=== PATIENT | female | born 1955 | race Two or more races ===

== ENCOUNTER 2023-10-20 11:57 | Inpatient (IN) | payer OTHER, SELFPAY ==
[2023-10-19] VITALS (14 sets, daily range): BP systolic 104–139; BP diastolic 75–88; BMI 24.1; BMI 28.1
--- NOTE | 2023-10-19 10:55 | ED.GENMED ---
History of Present Illness
<Barbara Gillette BLAST FURNACE KEEPER - Last Filed: 10/19/23 17:32>
General
Chief Complaint: Abdominal Symptoms
Source: patient
Exam Limitations: none
Time Seen by Provider: 10/19/23 10:42
Nursing documentation reviewed up to this point in time: agreed with
Travel History
Have you had any contact with someone who has COVID-19?: No
Do you have any symptoms of coronavirus? Fever > 100 degrees, chills, cough, shortness of breath, sore throat, loss of taste or smell, muscle aches, or headache?: No
History of Present Illness
History of Present Illness:
68-year-old female with history of HTN, NIDDM, kidney stone needing lithotripsy 5 years ago, presents with daughter stating she has had constant pain across her mid abdomen and also her left flank for 1 week. She is nauseous but has not vomited.
She denies diarrhea or constipation. Denies fever or chills. 5 days ago she saw blood in her urine, and now occasional pink urine since. Her last bowel movement was last p.m.
Phy Exam
<Barbara Gillette BLAST FURNACE KEEPER - Last Filed: 10/19/23 17:32>
Physical Exam
Physical Exam:
GENERAL: No acute distress. A&Ox3.
CONSTITUTIONAL: Afebrile.
EYES: PERRL, conjunctivae normal
ENMT: moist mucus membranes, Pharynx nl
RESPIRATORY: Regular respirations, nonlabored, lungs clear.
CARDIOVASCULAR: Regular rate and rhythm, no murmurs, no rubs.
GI: Soft, nontender, normal BS
MUSCULOSKELETAL: Moves with ease. Well perfused.
SKIN: Warm, dry, pink
PSYCH: Normal mood and affect. Well kept, interactive and appropriate
NEUROLOGIC: Awake, alert and oriented. No focal neurological deficits
Course
<Barbara Gillette BLAST FURNACE KEEPER - Last Filed: 10/19/23 17:32>
Orders/Labs/Results
Orders:
Orders
10/19/23 11:04
Ketorolac [Toradol] 15 mg IM NOW STA
Ondansetron Injectable [Zofran] 4 mg IV NOW STA
10/19/23 11:08
0.9% Sodium Chloride 1000 ml [Nss] 1,000 ml IV BOLUS
10/19/23 11:09
CT Abd/pel Without Iv Or Oral Urgent
Comment:
Reason For Exam: Left flank pain hx stones, gen abdominal pain
10/19/23 11:28
Complete Blood Count/With Diff Urgent
Comprehensive Metabolic Panel Urgent
Lipase Urgent
10/19/23 11:37
Ketorolac [Toradol] 15 mg IV NOW STA
10/19/23 11:41
Urinalysis Reflex To Culture Urgent
Date Specimen was Collected: 10/19/23
Time Specimen was Collected: 11:38
Urine Microscopic Reflex Cult Urgent
10/19/23 12:30
Add On- LAB Urgent
Tests Added?: BNP, Troponin
10/19/23 12:31
Electrocardiogram (*1) Urgent
Reason for Study: Chest Pain
EKG- Treatment ONCE
10/19/23 13:07
NT-proBNP Urgent
Troponin I Urgent
10/19/23 14:30
CR Chest - 2 Views Urgent
Comment:
Reason For Exam: SOB, elevated BNP
Abnormal Lab Results
10/19/23 10/19/23
11:28 11:41
Hgb 9.0 L g/dL
(12.0-16.0)
Hct 31.9 L %
(37.0-47.0)
MCV 68.2 L fL
(81.0-99.0)
MCH 19.2 L pg
(27.0-31.0)
MCHC 28.2 L g/dL
(33.0-37.0)
RDW 18.7 H %
(11.5-14.5)
MPV 10.6 H fL
(7.4-10.4)
Absolute Monos (auto) 1.0 H 10^3/uL
(0.1-0.6)
Lymphocytes % 17.1 L %
(20.5-51.1)
Monocytes % 12.2 H %
(1.7-9.3)
Sodium 134 L mmol/L
(135-145)
BUN 18 H mg/dl
(7-17)
Glucose 115 H mg/dl
(70-99)
Total Bilirubin 1.4 H mg/dl
(0.2-1.3)
AST 70 H U/L
(14-36)
ALT 54 H U/L
(0-35)
Total Protein 6.2 L g/dl
(6.3-8.2)
Ur Occult Blood Reflex 3+ A
(Negative)
Leukocyte Esterase Rfl Trace A
(Negative)
Urine RBC 11-15 A /HPF
(0-2)
Urine Bacteria (Reflex) Few A
(Negative)
Urine Glucose 3+ A
(Negative)
10/19/23 11:28
10/19/23 11:28
Vital Signs
Initial and Last Documented VS:
Initial Vital Signs
Temp Pulse Resp BP Pulse Ox
97.7 F 105 18 139/88 100
10/19/23 10:05 10/19/23 10:05 10/19/23 10:05 10/19/23 10:05 10/19/23 10:05
Last Documented Vital Signs
Temp Pulse Resp BP Pulse Ox
97.7 F 105 23 112/75 99
10/19/23 10:05 10/19/23 16:00 10/19/23 16:00 10/19/23 16:00 10/19/23 16:00
Cattle Farmer consulted with Physician
Cattle Farmer consulted with physician?: Yes
Name of Physician Consulted: Renee
<Dexter Duran MD - Last Filed: 10/19/23 17:25>
Orders/Labs/Results
Orders:
Orders
10/19/23 11:04
Ketorolac [Toradol] 15 mg IM NOW STA
Ondansetron Injectable [Zofran] 4 mg IV NOW STA
10/19/23 11:08
0.9% Sodium Chloride 1000 ml [Nss] 1,000 ml IV BOLUS
10/19/23 11:09
CT Abd/pel Without Iv Or Oral Urgent
Comment:
Reason For Exam: Left flank pain hx stones, gen abdominal pain
10/19/23 11:28
Complete Blood Count/With Diff Urgent
Comprehensive Metabolic Panel Urgent
Lipase Urgent
10/19/23 11:37
Ketorolac [Toradol] 15 mg IV NOW STA
10/19/23 11:41
Urinalysis Reflex To Culture Urgent
Date Specimen was Collected: 10/19/23
Time Specimen was Collected: 11:38
Urine Microscopic Reflex Cult Urgent
10/19/23 12:30
Add On- LAB Urgent
Tests Added?: BNP, Troponin
10/19/23 12:31
Electrocardiogram (*1) Urgent
Reason for Study: Chest Pain
EKG- Treatment ONCE
10/19/23 13:07
NT-proBNP Urgent
Troponin I Urgent
10/19/23 14:30
CR Chest - 2 Views Urgent
Comment:
Reason For Exam: SOB, elevated BNP
Abnormal Lab Results
10/19/23 10/19/23
11:28 11:41
Hgb 9.0 L g/dL
(12.0-16.0)
Hct 31.9 L %
(37.0-47.0)
MCV 68.2 L fL
(81.0-99.0)
MCH 19.2 L pg
(27.0-31.0)
MCHC 28.2 L g/dL
(33.0-37.0)
RDW 18.7 H %
(11.5-14.5)
MPV 10.6 H fL
(7.4-10.4)
Absolute Monos (auto) 1.0 H 10^3/uL
(0.1-0.6)
Lymphocytes % 17.1 L %
(20.5-51.1)
Monocytes % 12.2 H %
(1.7-9.3)
Sodium 134 L mmol/L
(135-145)
BUN 18 H mg/dl
(7-17)
Glucose 115 H mg/dl
(70-99)
Total Bilirubin 1.4 H mg/dl
(0.2-1.3)
AST 70 H U/L
(14-36)
ALT 54 H U/L
(0-35)
Total Protein 6.2 L g/dl
(6.3-8.2)
Ur Occult Blood Reflex 3+ A
(Negative)
Leukocyte Esterase Rfl Trace A
(Negative)
Urine RBC 11-15 A /HPF
(0-2)
Urine Bacteria (Reflex) Few A
(Negative)
Urine Glucose 3+ A
(Negative)
10/19/23 11:28
10/19/23 11:28
Vital Signs
Initial and Last Documented VS:
Initial Vital Signs
Temp Pulse Resp BP Pulse Ox
97.7 F 105 18 139/88 100
10/19/23 10:05 10/19/23 10:05 10/19/23 10:05 10/19/23 10:05 10/19/23 10:05
Last Documented Vital Signs
Temp Pulse Resp BP Pulse Ox
97.7 F 105 23 112/75 99
10/19/23 10:05 10/19/23 16:00 10/19/23 16:00 10/19/23 16:00 10/19/23 16:00
<Barbara Gillette BLAST FURNACE KEEPER - Last Filed: 10/19/23 17:32>
MDM/Problems Addressed
Differential Diagnosis Includes:
Kidney stone, ureteral stone, diverticulitis, AAA
MDM/Problems Addressed:
68-year-old female with history of HTN, NIDDM, kidney stone needing lithotripsy 5 years ago, presents with daughter stating she has had constant pain across her mid abdomen and also her left flank for 1 week. She is nauseous but has not vomited.
She denies diarrhea or constipation. Denies fever or chills. 5 days ago she saw blood in her urine, and now occasional pink urine since. Her last bowel movement was last p.m.
Afebrile
10/19/2023 1147 AM\\
CBC: Hemoglobin 9, nothing to compare, indices indicate iron deficiency
CMP:Minimal elevation of AST ALT, no clinically significant abnormality
Lipase normal
UA: 3+ occult blood, negative nitrates
10/19/[address] abdomen pelvis with IV only contrast radiology report read: 1. Horseshoe kidney. Large stones within each renal pelvis, without significant hydronephrosis on either side.
2. Bilateral pleural effusions. Small amount of diffuse intraperitoneal ascites. Small pericardial effusion.
3. Mild wall thickening involving the urinary bladder, without adjacent inflammatory change. Findings may be reflective of cystitis.
4. Severe coronary arterial calcification. Please correlate with symptoms of and risk factors for coronary artery disease, with further workup as clinically appropriate.
5. Right lower lobe lung nodule measuring 5 mm in diameter. As per Fleischner Society recommendations, no further CT follow-up is required unless the patient is high risk for lung carcinoma, in which case a follow-up chest CT should be considered in
approximately 12 months.
10/19/2023 1430 PM
BNP 7750
Troponin within normal limits
Case discussed with Dr. Duran who evaluated patient, agrees with admit with CHF
Hospitalist notified of admission.
Chronic conditions affecting care: DM and HTN
<Barbara Gillette NP - Last Filed: 10/19/23 17:32>
*EKG
EKG Intrepretation Date: 10/19/23
Interpretation: abnormal
Rate: normal
Rhythm: sinus and PAC's
[place]: normal axis
Interval: normal interval
QRS Pattern: normal QRS
Ischemia: non-specific ST changes
*Critical Care Note
Total Time (30-74mins, 75-104mins- exclusive of procedures): Not Applicable
ED Attending Note
<Barbara Gillette NP - Last Filed: 10/19/23 17:32>
-
Portions of this chart may have been created with voice recognition software.� Occasional wrong word or��sound alike� substitutions may have occurred due to the inherent limitations of voice recognition software.
<Dexter Duran MD - Last Filed: 10/19/23 17:25>
ED Attending Note
Patient seen and examined by attending physician: Yes
ED Attending Note:
I have seen and evaluated the patient with a [id number] encounter. I have spoken to the advance practicer provider and involved in the medical history, the physical exam, medical decision making.
Evaluation and management service: agree unless noted differently below.
Results interpretation: agree unless noted differently below.
Focused HPI: 68-year-old female with a history of hypertension and diabetes who presents to the emergency room with her daughter for evaluation of dyspnea and abdominal discomfort. Patient reports that she has had increasing exertional dyspnea for
the past 2 to 3 months. Over the past 2 to 3 weeks in addition to her dyspnea she has noted increasing abdominal bloating and upper abdominal discomfort. She has had some nausea and poor appetite but no vomiting. No diarrhea or constipation. No
fevers or chills. She has not any chest pain.
Physical exam: Awake alert oriented x 3. Tachycardic but otherwise normal vitals. Abdomen mildly distended, mildly tender across the upper abdomen. Breath sounds diminished at the lung bases bilaterally. No focal wheezing or rales appreciated.
No cardiac rubs gallops or murmurs but tachycardia; ostensibly regular rhythm. No significant edema.
Medical Decision Makin-year-old female presents for evaluation of worsening exertional dyspnea and upper abdominal discomfort. Labs sent off and reviewed�[facility] shows microcytic anemia with a hemoglobin of 9�no priors available for comparison.
CMP shows mildly abnormal liver function test. She had a CT of the abdomen pelvis which showed trace bilateral pleural effusions, trace ascites and other incidental findings. Chest x-ray shows some pulmonary edema and cardiomegaly and her BNP is
7700. Suspect likely this is new onset CHF and abdominal discomfort could be related to hepatic congestion. She has just [place] to this country does not have a doctor here�although she is not in distress will admit for continued evaluation and
workup of suspected new onset CHF.
Discharge Plan
Departure
Patient Disposition: Admit
Date of Disposition: 10/19/23
Time of Disposition: 14:29
Presentation/result/management discussed w/ accepting MD/DO: Hospitalist
Condition: Fair
Discharge Problem:
CHF (congestive heart failure)
Prescriptions:
No Action
Atorvastat/Clopidogrel/Aspirin
1 tab PO DAILY
Rx Instructions:
Atorvastatin 20mg, Clopidogrel 75mg, Aspirin 75mg
valsartan-hydrochlorothiazide 160-12.5 mg tablet
1 tab PO DAILY
sitagliptin phos-metformin 50-500 mg Tablet
1 tab PO BID
dapagliflozin propanediol 10 mg Tablet
10 mg PO DAILY
Referrals:
NONE,* [Family Provider] -
Interventions
Interventions:
*Risk Screen - Suicide Last Done: 10/19/23 11:24
*General Assessment Last Done: 10/19/23 11:24
*Neglect/Abuse Screening Last Done: 10/19/23 11:24
ED- Fall Risk Assessment Last Done: 10/19/23 11:43
*ED COVID-19 Vaccine History Last Done: 10/19/23 10:09
KF-Vvihfr-Hjxhmwddtl Assessment Last Done: 10/19/23 11:40
[2023-10-19] MEDS: ZOFRAN 4 MG IV (11:30)
[2023-10-19] MEDS: NSS 1000 IV (11:30)
[2023-10-19 11:36] LABS: % Basophils 0.9 % (0-2); % Eosinophils 1.2 % (0-6); % Immature Granulocytes 0.4 % (0-0.5); % Lymphocytes 17.1 % (20.5-51.1); % Monocytes 12.2 % (1.7-9.3); % Neutrophils 68.2 % (42.2-75.2); Absolute Basophils 0.1 10^3/uL (0-0.2); Absolute Eosinophils 0.1 10^3/uL (0-0.7); Absolute Lymphocytes 1.3 10^3/uL (1.2-3.4); Absolute Neutrophils 5.3 10^3/uL (1.4-6.5); Hematocrit 31.9 % (37.0-47.0); Mean Corp Hgb Conc. 28.2 g/dL (33.0-37.0); Mean Corpuscular Hgb 19.2 pg (27.0-31.0); Mean Corpuscular Volume 68.2 fL (81.0-99.0); Mean Platelet Volume 10.6 fL (7.4-10.4); Nucleated Red Blood Cells % 0.5 %; Platelet Count 373 10^3/uL (130-400); Red Blood Cell Count 4.68 10^6/uL (4.20-5.40); Red Cell Dist. Width 18.7 % (11.5-14.5); White Blood Cell Count 7.8 10^3/uL (4.8-10.8)
[2023-10-19] MEDS: TORADOL 15 MG IV (11:37)
[2023-10-19 11:54] LABS: ALT (SGPT) 54 U/L (0-35); AST (SGOT) 70 U/L (14-36); Albumin 3.8 g/dl (3.5-5.0); Alkaline Phosphatase 71 U/L (38-126); Blood Urea Nitrogen 18 mg/dl (7-17); Calcium 9.3 mg/dl (8.4-10.2); Carbon Dioxide 22 mmol/L (22-30); Chloride 105 mmol/L (98-107); Estimated Creatinine Clearance 42 ml/min; Glucose 115 mg/dl (70-99); Lipase 105 U/L (23-300); Potassium 4.8 mmol/L (3.5-5.1); Sodium 134 mmol/L (135-145); Total Bilirubin 1.4 mg/dl (0.2-1.3); Total Protein 6.2 g/dl (6.3-8.2); eGFR > 60.00
[2023-10-19 11:58] LABS: Urine Albumin Negative (Neg - Trace); Urine Bilirubin Negative (Negative); Urine Character Clear (Clear); Urine Color Straw; Urine Glucose 3+ (Negative); Urine Ketone Negative (Negative); Urine Leukocyte Trace (Negative); Urine Nitrite Negative (Negative); Urine Occult Blood 3+ (Negative); Urine Specific Gravity 1.005 (<1.030); Urine Urobilinogen Negative (Neg - 1+)
[2023-10-19 12:48] LABS: Urine Squamous Cell >30 /LPF (Few)
[2023-10-19 12:50] LABS: Urine Bacteria Few (Negative); Urine White Cell 0-2 /HPF (0-5)
[2023-10-19 13:55] LABS: NT-proBNP 7750 pg/ml; Troponin I 0.015 ng/ml
[2023-10-19 15:41] LABS: Anisocytosis 1+; Microcytosis 2+
[2023-10-19 15:42] LABS: Hypochromasia 1+; Normal RBC Morphology No
--- NOTE | 2023-10-19 20:21 | HPS.HSE ---
Addendum entered and electronically signed by Lucero Saucedo DO 10/19/23 21:37:
The patient is seen and examined. I have reviewed the patient with Stacie, and agree with her history and physical, assessment and plan of care as per below.
The patient is from [place] and speaks very little Yi and family is also in the room giving history and physical. The patient has diffuse abdominal pain similar to pain from prior kidney stones. No vomiting, no diarrhea, no CP, no SOB at this
time.
VSS, AF
Abdomen- no fluid wave, no peritoneal signs, normal BS, diffuse tenderness with some voluntary guarding
CV RRR, no m/r/g
Lungs CTA b/l no w/r/r
Labs and imaged reviewed
CT a/p
1. Horseshoe kidney. Large stones within each renal pelvis, without significant hydronephrosis on either side.
2. Bilateral pleural effusions. Small amount of diffuse intraperitoneal ascites. Small pericardial effusion.
3. Mild wall thickening involving the urinary bladder, without adjacent inflammatory change. Findings may be reflective of cystitis.
4. Severe coronary arterial calcification. Please correlate with symptoms of and risk factors for coronary artery disease, with further workup as clinically appropriate.
5. Right lower lobe lung nodule measuring 5 mm in diameter. As per Fleischner Society recommendations, no further CT follow-up is required unless the patient is high risk for lung carcinoma, in which case a follow-up chest CT should be considered in
approximately 12 months.
#CAD on imaging without known PMH of CAD per family though she is on statin/aspirin/plavix from [place], possible CHF w ascites and congested liver
-Cards Cx
-echo
-tele monitoring
-IV Lasix x 1 in ED and monitor clinical response
-Trop repeat pending
- repeat CMP in am, repeat CBC in am
-lipase WNL
Horseshoe kidney w stones, no hydronephrosis noted
-UA pending
-Urology consultation appreciated
Original Note:
Family Physician
-
Family Physician: * NONE
Chief Complaint
-
Abdominal Discomfort
History of Present Illness
Pt is a 68yo F w/ a PMH of HTN, DM-I, and kidney stones presenting to the ED complaining of increasing abdominal distension and abdominal discomfort. Daughter initially proved additional history however is no longer in the emergency department and
no answer with multiple phone calls. ED documentation indicates in addition to the abdominal discomfort patient has also noted increased dyspnea on exertion. Mention is also made that patient saw blood in her urine several days ago, and has
intermittent pink urine. Other history is limited due to language barrier.
Medical History
Past Medical History
Past Medical History: Reports Other
Additional Past Medical History:
Essential Hypertension
Hyperlipidemia
Diabetes Mellitus
Past Surgical History: Reports Other
Additional Past Surgical History:
Knee Surgery
Lithotripsy
Social History
Unable to obtain full social history at this time due to: Language Barrier
Family History
Family History: Unable to Obtain
Allergies / Home Medications
Allergies reflects when Allergies were last updated in [facility].
Home Medications with original date entered in [facility]
Allergy/Medication List:
Allergies
Allergy/AdvReac Type Severity Reaction Status Date / Time
No Known Allergies Allergy Verified 10/19/23 10:10
Home Medications
Atorvastat/Clopidogrel/Aspirin 1 tab PO DAILY Heart Disease/Blood Clot Prevention 10/19/23
dapagliflozin propanediol 10 mg tablet 10 mg PO DAILY Diabetes 10/19/23
sitagliptin phosphate 50 mg-metformin 500 mg tablet 1 tab PO BID Diabetes 10/19/23
valsartan 160 mg-hydrochlorothiazide 12.5 mg tablet 1 tab PO DAILY Blood Pressure 10/19/23
Review of Systems
-
Unable to obtain full review of systems at this time due to: Language Barrier
Physical Exam
Vital Signs
Vital Signs
Temp Pulse Resp BP Pulse Ox
97.7 F 95 22 118/77 99
10/19/23 10:05 10/19/23 18:15 10/19/23 18:15 10/19/23 18:00 10/19/23 18:15
Physical Exam
General: Comfortable and Conversant
HEENT: NormoCephalic, Anicteric and Moist mucous membranes
Respiratory: Rales (Right Base) and Decreased Breath Sounds
Cardiac: S1/S2 and Regular Rhythm; No Murmur
GI: Soft, Non Tender and Other (Protuberant)
Musculoskeletal: No Clubbing, No Cyanosis and No Edema
Skin: Warm and Dry
Neuro: Awake, Alert and Nonfocal/grossly intact
Laboratory Results
-
10/19/23 11:28
10/19/23 11:28
Laboratory Results
Total Bilirubin 1.4 mg/dl (0.2-1.3) H 10/19/23 11:28
AST 70 U/L (14-36) H 10/19/23 11:28
ALT 54 U/L (0-35) H 10/19/23 11:28
Alkaline Phosphatase 71 U/L (38-126) 10/19/23 11:28
Troponin I 0.015 ng/ml 10/19/23 13:07
Lipase 105 U/L (23-300) 10/19/23 11:28
Data Reviewed
-
Diagnostic Radiology: Report Reviewed by me
CT Scan: Report Reviewed by me
Lab Data: Labs Reviewed by me
Impression/Plan
-
Acute Heart Failure, unknown type
-Consult Cardiology
-Check Echocardiogram
-Continue Lasix 40mg IV Daily
-Monitor Is&Os and Daily Weights
Elevated LFTs, suspect vascular congestion in setting of acute heart failure
-Recheck in AM
Microcytic Anemia, unknown baseline
-Check iron studies, vitamin b12 and folic acid
Microscopic Hematuria
-Patient with horseshoe kidney with large stones in each renal pelvis
-Consult Urology
Coronary Artery Disease
-Patient with noted severe arterial calcification by CT scan
-Family denies any known history of stents
-Continue aspirin and clopidogrel
Diabetes Mellitus, Type II
-Continue dapagliflozin, sitagliptin and metformin
-Monitor sugars and continue coverage insulin
Essential Hypertension
-Continue valsartan
-Hold HCTZ while on Lasix
Hyperlipidemia
-Hold atorvastatin in setting of slightly elevated LFTs
DVT proph: SCDs
Code Status: Full Code
[2023-10-19] MEDS: DILAUDID 0.5 MG IV (21:03)
[2023-10-19] MEDS: LASIX 40 MG IV (21:03)
[2023-10-19 21:33] LABS: Iron 37 ug/dl (37-170)
[2023-10-19 21:43] LABS: Percent Saturation 7 % (20-50); Total Iron Binding Capacity 507 ug/dl (265-497)
[2023-10-19 21:47] LABS: Glucose - Point of Care 165 mg/dl (70-99)
[2023-10-19 22:29] LABS: Troponin I 0.017 ng/ml
[2023-10-19] MEDS: COMPAZINE 5 MG IV (23:01)
--- NOTE | 2023-10-19 23:30 | PTCARENOTE ---
Patient admitted to room 407-1, ambulatory from stretcher to bed. Patient does not speak tunisian. Her daughter is at the bedside to translate. Patient with mild abdominal pain, abdomen is softly distended and tender to palp. Having nausea with one
emesis, medicated with compazine x1. Skin intact. Bed alarm applied, asked patient to ring prior to getting out of bed, she verbalized understanding. Call brice in reach
[2023-10-19 23:49] LABS: Ferritin 8.1 ng/ml (11.1-264.0)
[2023-10-20 00:21] LABS: Folate > 20.0 ng/ml (2.76-20); Vitamin B12 677 pg/ml (239-931)
[2023-10-20 03:07] VITALS: BP 123/80
[2023-10-20 06:00] VITALS: BMI 27.4
[2023-10-20 06:18] LABS: Hematocrit 29.1 % (37.0-47.0); Hemoglobin 8.3 g/dL (12.0-16.0); Mean Corp Hgb Conc. 28.5 g/dL (33.0-37.0); Mean Corpuscular Hgb 19.3 pg (27.0-31.0); Mean Corpuscular Volume 67.8 fL (81.0-99.0); Mean Platelet Volume 10.8 fL (7.4-10.4); Platelet Count 322 10^3/uL (130-400); Red Blood Cell Count 4.29 10^6/uL (4.20-5.40); Red Cell Dist. Width 18.6 % (11.5-14.5); White Blood Cell Count 7.4 10^3/uL (4.8-10.8)
[2023-10-20 06:41] LABS: ALT (SGPT) 78 U/L (0-35); AST (SGOT) 79 U/L (14-36); Albumin 3.5 g/dl (3.5-5.0); Alkaline Phosphatase 70 U/L (38-126); Blood Urea Nitrogen 21 mg/dl (7-17); Calcium 8.9 mg/dl (8.4-10.2); Carbon Dioxide 25 mmol/L (22-30); Chloride 105 mmol/L (98-107); Estimated Creatinine Clearance 31 ml/min; Glucose 118 mg/dl (70-99); HDL Cholesterol 22 mg/dl; LDL Cholesterol, Calculated 34 mg/dl; Magnesium 1.7 mg/dl (1.6-2.3); Sodium 134 mmol/L (135-145); Total Cholesterol 76 mg/dl (50-199); Total Protein 5.6 g/dl (6.3-8.2); Triglyceride 103 mg/dl (10-149); Very Low Density Lipoprotein 20 mg/dl (0-30)
[2023-10-20 07:00] VITALS: BP 126/56
[2023-10-20 07:07] LABS: TSH Reflex To Free T4 1.75 uIU/ml (0.47-4.68)
[2023-10-20 07:19] LABS: Hepatitis C Antibody Negative (Negative)
[2023-10-20 07:26] LABS: Glucose - Point of Care 149 mg/dl (70-99)
--- NOTE | 2023-10-20 08:15 | CON.CAR ---
Addendum entered and electronically signed by Bryson Cortes MD 10/20/23 12:35:
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 However, new cardiomyopathy is inconsistent with her presentation. Again she has quite exquisite tenderness in her abdominal exam. Her complaints are anorexia, nausea
and bloating. She is visiting from [place] and I suspect this is a chronic issue. However, we can offer evaluation for her cardiomyopathy after acute issues are handled. Discussed with Dr. Weiss who agrees. GI has been consulted and plan for
ultrasound today. Will continue to follow.
Addendum entered and electronically signed by Bryson Cortes MD 10/20/23 10:34:
I saw and examined the patient.
The BALER OPERATOR's note was reviewed and I agree with the note.
Comment: 68 yo [place] speaking woman see with language line, here with n/v/bloating and abdominal pain. H/o DM, HTN, HLD and cac we are asked to evaluate for CHF. No orthopnea, pnd or dyspne. NO cp. No h/o CVA or ND. On exam, she is lying perfectly
flat in bed with normal respiratory effort. Her lungs are clear to auscultation she has a regular rate and rhythm with a normal S1-S2 no murmur rubs or gallops are appreciated abdomen was soft but tender in the right upper quadrant, epigastric and
left upper quadrant area. Normal bowel sounds. No lower extremity edema. Overall, I do not suspect volume overload due to heart failure. Exam and history most concerning for GI etiology of symptoms. Given her medical history and proBNP we will
check an echocardiogram. No further diuresis at this time. Unclear why she is on a combination pill of atorvastatin, clopidogrel and aspirin. She can stop her clopidogrel and continue aspirin if able. Given the history of hematuria if needed
also may hold aspirin. Findings and recommendations discussed with Dr. Weiss.
Original Note:
Consultation
Consultation Request
Date/Time Consultation Requested: 10/19/23 21:21
Date/Time Consultation Performed: 10/20/23 08:10
Requesting Provider: Stacie Soliz PA-C
Performing Provider: RISA Lopez for Dr. Cortes
Reason for Consultation: Acute heart failure
Medical History
-
Chief Complaint: Abdominal distention
History of Present Illness:
Patient is a 68-year-old [place]am[place] speaking female with hypertension, dyslipidemia, type 2 diabetes mellitus, and coronary artery calcifications who presented to the emergency department the chief complaint of abdominal distention. Last week she
endorsed associated nausea which has spontaneously resolved. She did not have vomiting nor diarrhea. She reports she has been having back pain below her ribs for the past month which has gotten neither better nor worse. She was found to have
bilateral pleural effusions on imaging in addition to an elevated proBNP. She has anemia, chronicity unknown. She is on oral agents for her type 2 diabetes and valsartan�HCTZ for her hypertension. She is also on DAPT (ASA/clopidogrel). She
denies all cardiac procedures including stenting. She is not having any chest pain. She is not having any shortness of breath.
A coding file clerk was used for this consultation.
Past Medical History
Past Medical History: HTN, Hypercholesterolemia and NIDDM
Past Surgical History: Orthopedic
Social History
Tobacco: Non-Smoker
Alcohol: None
Drug: None
Living: With Family
Family History
Family History: Reviewed & Not Pertinent
Allergies / Home Medications
Allergy/AdvReac Type Severity Reaction Status Date / Time
No Known Allergies Allergy Verified 10/19/23 10:10
Medication Instructions Recorded Confirmed Type
Atorvastat/Clopidogrel/Aspirin 1 tab PO DAILY Heart Disease/Blood 10/19/23 10/19/23 History
Clot Prevention
dapagliflozin propanediol 10 mg 10 mg PO DAILY Diabetes 10/19/23 10/19/23 History
tablet
sitagliptin phosphate 50 1 tab PO BID Diabetes 10/19/23 10/19/23 History
mg-metformin 500 mg tablet
valsartan 160 1 tab PO DAILY Blood Pressure 10/19/23 10/19/23 History
mg-hydrochlorothiazide 12.5 mg
tablet
Review of Systems
-
History Source: Patient
All other systems: Negative unless noted
Constitutional: Fatigue
Cardiac: No Symptoms
Abdomen/GI: Other (Bloating)
: No Symptoms
Neurological: No Symptoms
Physical Exam
Vital Signs
Temp Pulse Resp BP Pulse Ox
98.3 F 99 20 123/80 100
10/20/23 03:07 10/20/23 03:07 10/20/23 03:07 10/20/23 03:07 10/20/23 03:07
Lab Results
10/20/23 05:20
10/20/23 05:20
Troponin I 0.017 ng/ml 10/19/23 22:00
Fcr-B-Zyuzqrzqqgu Pept 7750 pg/ml 10/19/23 13:07
Physical Exam
General: Well Developed, Well Nourished, No Apparent Distress and Comfortable
HEENT: Normocephalic, Anicteric, Moist Mucous Membranes and Other (Hard of hearing)
Respiratory: Non Labored Respirations
Cardiac: S1/S2 and Regular Rhythm; Negative Peripheral Edema
Breast: Deferred by me
GI: Soft, Non Tender, Non Distended and Normal Bowel Sounds
Rectal: Deferred by Provider
Genito-urinary: No Costovertebral Tender
Musculoskeletal: No Clubbing and No Cyanosis
Skin: Warm and Dry
Neuro: AO x 3
Hematologic/Lymphatic: No Lymphadenopathy
Psych: Calm
Impression / Plan
-
Abdominal bloating
-Nausea with emesis overnight & poor oral intake, hold further diuresis
Volume overload
-Small amount of diffuse intraperitoneal�ascites on CT
-S/p furosemide 40 mg IV in ER, now with renal insufficiency, hold further diuretic
-TTE today
Coronary artery calcifications
-On DAPT (ASA & clopidogrel), denies stenting, would recommend single agent
-Chest pain free with stable EKG
HTN, continue valsartan, hold HCTZ
Renal insufficiency, consider holding metformin
Transaminitis
Anemia, type unknown, per primary
Microscopic hematuria with horseshoe kidney, Urology following
Type II DM, Hgba1c 7.0%
Dyslipidemia, atorvastatin on hold with elevated LFTs
Data Reviewed
-
EKG: Report Reviewed by me (Sinus rhythm, PACs, rate 99)
Radiology: Report Reviewed by me (CXR: Mild pulmonary edema. Mild cardiomegaly. Small bilateral pleural effusions, right greater than left.)
CT Scan: Report Reviewed by me (Abd/Pel: Small pericardial effusion, measuring 6 mm in greatest dimension. Severe calcification of the LAD, circumflex, and right main coronary arteries. Horseshoe kidney. Large stones within each renal pelvis,
without significant hydronephrosis on either side)
Labs: Labs Reviewed by me
[2023-10-20] MEDS: DIOVAN 160 MG PO (08:17)
[2023-10-20] MEDS: ASPIR LOW (ENTERIC COATED) 81 MG PO (08:18)
[2023-10-20] MEDS: GLUCOPHAGE 500 MG PO ×2 (08:18→16:53)
[2023-10-20] MEDS: PLAVIX 75 MG PO (08:18)
[2023-10-20] MEDS: JANUVIA 50 MG PO ×2 (08:18→16:53)
[2023-10-20] MEDS: FARXIGA 10 MG PO (08:18)
[2023-10-20] MEDS: NOVOLOG FLEXPEN-LOW RESISTANCE SC ×3 (08:19→16:55)
--- NOTE | 2023-10-20 09:02 | W.PN.HOSP.TC ---
Today's Communication/Plan
-
Antibiotics, PPI.
Assessment / Plan
Assessment / Plan
Physical exam:
General: Acutely ill
HEENT: Normocephalic, Atraumatic and Moist Mucous Membranes
Respiratory: Decreased breath sounds. Few crackles R base that cleared after changed position. Normal JVD. Negative Wheezes or Rhonchi
Cardiac: Regular Rhythm and S1/S2
GI: Soft, Very Tender in epigastric RUQ, CVA tenderness, Nondistended
Musculoskeletal: No Clubbing, No Cyanosis and No Edema
Neuro: Awake, Alert and Oriented
Psych: Calm
A/P:
Abdominal pain with nausea---> keep npo but can consider advancing after gi/surgery eval, GI and surgery consult, start Protonix 40 m IV daily, monitor hemoglobin. Seen CT scan of the abdomen. US abdomen today. Discussed with cardiology who feels
less likely a cardiac etiology but might need further ischemic and right pressure cardiac w/u down the road(no need for emergent cardiac w/u but will likely require at some point). Echo abnormal with mild depressed EF and WMA, normal troponin x2. I
had one of my partners Dr De Paz who speaks same language [place] and got details of her history but no unifying diagnosis yet and etiology points toward GI/ but can not completely r/o cardiac etiology given some ?exertional symptoms as well. Cont
asa, b-blockers, arb's, hold Plavix. I discussed with daughter at bedside.
Upon admission concerns for CHF-started on Lasix but creatinine bumped and diuretics held. Continue holding diuretics. Echocardiogram abnormal as above.
Hematuria and Nephrolithiasis--> start iv Rocephin and f/u cultures, Urology consulted.
Diabetes Mellitus, Type II--> Continue dapagliflozin, sitagliptin and hold metformin given GI Sx and if needs cath iodine contrast, cont monitor sugars and continue coverage insulin
Hypertension--> continue valsartan, hold HCTZ, started Toprol
Hyperlipidemia-->hold atorvastatin in setting of slightly elevated LFTs
DVT proph-->SCDs
Code Status-->Full Code
Total time spent on today's encounter was 52 minutes which included time spent in counseling the patient/family regarding diagnosis and treatment plan as listed above, goals of care, and symptom management. Case was discussed with nursing staff,
specialists, and care coordinators/case management. All labs and imaging personally reviewed by me. Remainder the time spent in detailed review of previous records, lab data, imaging, and other medical provider documentation.
Anticipated Discharge: > 48 hours
Subjective/Interval History
-
Date of Service: October 20, 2023
Date obtained with tranlation-->Patient c/o intermittent epigastric discomfort, radiated to back and associated with nausea for >2 weeks. She has also c/o dyspnea on exertion and some hematuria. Denies chest pain. No fever or chills.
Objective Data
-
Labs:
Laboratory Results
10/20/23
05:20
WBC 7.4
Hgb 8.3 L
Hct 29.1 L
Plt Count 322
Sodium 134 L
Potassium 5.0
Chloride 105
Carbon Dioxide 25
BUN 21 H
Creatinine 1.2 H
Glucose 118 H
Calcium 8.9
Total Bilirubin 1.0
AST 79 H
ALT 78 H
Alkaline Phosphatase 70
Vital Signs:
Vital Signs
Temp Pulse Resp BP Pulse Ox
98.1 F 89 18 126/56 97
10/20/23 07:00 10/20/23 08:17 10/20/23 07:00 10/20/23 08:17 10/20/23 07:00
I&O
10/19/23 10/20/23 10/21/23
06:59 06:59 06:59
Intake Total 240 / 240
Balance 240 / 240
--- NOTE | 2023-10-20 09:57 | CONS.URO ---
Consultation
-
Date/Time Consultation Requested: 10/19/23
Date/Time Consultation Performed: 10/20/23
Requesting Provider: Hospital Medicine
Performing Provider: Ronald
Reason for Consultation: hematuria, non-obstructing renal stones
Medical History
History of Present Illness
68F who lives with family in [place] presenting to ED w/ abdominal distention, abdominal discomort, dyspnea on exertion, and intermittent hematuria (pink) x1 week per daughter.
Denies N/V.
Denies fevers.
Of note, patient does not speak Turkish ([place]) - language barrier present.
Information and history obtained from daughter (Hillary De Paz).
Past Medical History
Past Medical History: CAD, HTN and Other (hyperlipidemia, diabetes mellitus)
Past Surgical History: Orthopedic (knee surgery) and Urological (ureteroscopy/laser lithotripsy ([place]))
Social History
Unable to obtain full social history at this time due to: Language Barrier
Tobacco: Non-smoker
Alcohol: None
Drug: None
Living: With Family
Employment: Not Employed
Family History
Family History: Reviewed & Not Pertinent
Allergies/Home Medications
Allergies
Allergy/AdvReac Type Severity Reaction Status Date / Time
No Known Allergies Allergy Verified 10/19/23 10:10
Home Medications
Medication Instructions Recorded Confirmed Type
Atorvastat/Clopidogrel/Aspirin 1 tab PO DAILY Heart Disease/Blood 10/19/23 10/19/23 History
Clot Prevention
dapagliflozin propanediol 10 mg 10 mg PO DAILY Diabetes 10/19/23 10/19/23 History
tablet
sitagliptin phosphate 50 1 tab PO BID Diabetes 10/19/23 10/19/23 History
mg-metformin 500 mg tablet
valsartan 160 1 tab PO DAILY Blood Pressure 10/19/23 10/19/23 History
mg-hydrochlorothiazide 12.5 mg
tablet
Review of Systems
-
Unable to obtain full review of systems at this time due to: Language Barrier
History Source: Family
A 12 point Review of Systems was completed except as noted: Yes
Physical Exam
Vital Signs
Vital Signs
Temp Pulse Resp BP Pulse Ox
98.1 F 89 18 126/56 97
10/20/23 07:00 10/20/23 08:17 10/20/23 07:00 10/20/23 08:17 10/20/23 07:00
Lab / Testing Results
Laboratory Results
10/20/23 05:20
10/20/23 05:20
Physical Exam
General: Well Developed, Well Nourished and No Apparent Distress
HEENT: Normocephalic and Anicteric
Cardiac: Regular Rhythm
Breast: Deferred by me
GI: Soft, Non Tender and Other (diffuse abdominal tenderness)
Rectal: Deferred by Provider
Genito-urinary: No Costovertebral Tend
Skin: Warm and Dry
Neuro: No Motor Deficits and Nonfocal/Grossly Intact
Hematologic/Lymphatic: No Lymphadenopathy
Psych: Calm and Intact Judgement
Assessment / Plan
-
Non-obstructing bilateral renal stones (<2.0 cm stone burden in each kidney)
Horseshoe kidney
Hematuria
WBC: wnl
Cr: 1.2
UA: +RBCs/LE/few bacteria
CTAP w/o IV contrast:
- Horseshoe kidney. Large stones within each renal pelvis, without significant hydronephrosis on either side.
- Mild wall thickening involving the urinary bladder, without adjacent inflammatory change. Findings may be reflective of cystitis.
CT imaging reviewed - no evidence of obstructive uropathy w/ large volume bilateral renal stone burden.
Possible cystitis on basis of bladder appearance on imaging.
No renal/ureteral/bladder masses appreciated.
- No indication for surgical intervention (non-obstructing renal stones)
- Will need outpatient discussion re: renal stone disease
- Will need outpatient cystoscopy for hematuria
- Pending Cardiology input, consider HOLDING ASA/Plavix if hematuria not improving
- F/U UCx to r/o UTI
D/w Dr. Weiss.
D/w daughter via telephone call (tok tok tok) - partial history obtained from daughter.
Data Reviewed
-
Total Time Spent with Patient (in minutes): 40
CT Scan: Image personally visualized and interpreted, Report Reviewed by Me, Discussed with Physician and Discussed with Family
Lab Data: Labs Reviewed, Discussed with Physician and Discussed with Family
Old Records: Reviewed
--- NOTE | 2023-10-20 10:34 | CON.GI ---
Addendum entered and electronically signed by Dane Cordon MD 10/20/23 18:25:
I saw and examined the patient.
The PA's note was reviewed and I agree with the note.
Comment:
The patient is a 68 year-old female with h/o HTN, DM, hyperlipidemia, kidney stones s/p laser lithotripsy done in [place] who p/w abdominal pain. The patient admits to 1 week of abdominal pain with nausea. She reports her pain is same as symptoms
during prior episodes of kidney stones. CT here showed large non-obstructing b/l kidney stones. Also found to be anemic hgb 9.0 but unclear baseline. No signs of overt bleeding currently. Evidence of iron deficiency anemia on labs.
Impression / Rec:
1. Abdominal pain - history was confirmed with copyist services. She reports her abdominal pain is same as pain she experiences when she has kidney stone isseus. CT here showed horseshoe kidney with conglomeration of large stones seen in both
right and left renal pelvis (1.7 cm in right, 1.8 cm in left). Her pain is improved and denies pain now. She likely has nephrolithiasis related pain which seems to be improving. Will s/o. Pt can f/u with GI as OP for further evaluation of
anemia. Pls call with questions.
Addendum entered and electronically signed by Lauren Stanton NP 10/20/23 16:19:
LFT's elevated, possibly related to hepatic congestion with CHF. US/CT imaging unrevealing for cause. Add hepatitis serologies. Trend LFT's.
Original Note:
Consultation
-
Date/Time Consultation Requested: 10/20/23 @ 10:32
Date/Time Consultation Performed: 10/20/22 @ 10:30
Requesting Provider: Dr. Weiss
Performing Provider: RISA Holt; Dr. Dane Cordon
Reason for Consultation: abdominal pain, n/v
Medical History
Chief Complaint / HPI
Chief Complaint: abdominal discomfort
History of Present Illness:
The patient is a 68-year-old female who previously lived in [facility], with a past medical history significant for hypertension, type 2 diabetes, hyperlipidemia, kidney stones with lithotripsy, who presents to the emergency room complaints of abdominal
discomfort. We are being asked to evaluate for the presenting symptoms with ongoing nausea. The patient's daughter Vielka is at the bedside to assist with HPI as the pt is non-south korean speaking. She reports that her mother developed abdominal
pain about 1 week ago. The pain was located throughout her entire abdomen of intermittent consistency. The pain was similar to her prior episodes of kidney stones but she also noted some nausea as well that is typically not associated with this
pain. She reports intermittent nausea without vomiting. She denies any overt heartburn symptoms, dysphagia, or odynophagia. She denies any significant constipation. She denies any signs of bleeding such as melena, hematochezia, or hematemesis,
but her daughter does note she has had blood in her urine intermittently. She does admit to some shortness of breath intermittently over the past month but denies any chest pain. She denies any prior EGD or colonoscopy. She denies any recent
travel or recent sick contacts. She denies any alcohol use. She denies any NSAID use. She denies any family history of colorectal cancer. In the ER she underwent CT imaging of the abdomen and pelvis without contrast showing horseshoe kidney with
large stones in each renal pelvis without hydronephrosis, bilateral pleural effusions with small abdominal intraperitoneal ascites, small pericardial effusion, mild wall thickening involving the urinary bladder, severe coronary artery
calcifications, and right lower lobe lung nodule measuring 5 mm. Chest x-ray was done as well showing a mild pulmonary edema and mild cardiomegaly with small bilateral pleural effusions. An ultrasound of the abdomen was done as well showing
gallbladder wall thickening without gallstones or biliary ductal dilation. Routine labs on admission showed a hemoglobin of 9.0 MCV 68.2, WBC 7.8, sodium 134, potassium 4.8, BUN 18, creatinine 0.9, total iron 37, iron saturation 7, ferritin 8.1,
total bilirubin 1.4, AST 70, ALT 54, alk phos 54, vitamin B6 77, folate greater than 20, lipase 105. She was made NPO and admitted for further evaluation by urology, cardiology, and GI. Currently she feels improved with no further abdominal
discomfort or nausea.
Past Medical History
Past Medical History: HTN, Hypercholesterolemia, NIDDM and Other (Kidney stones)
Past Surgical History: Orthopedic (knee arthoscopy) and Other (lithotripsy)
Family History
Family History: Reviewed & Not Pertinent
Allergies / Home Medications
Allergy/AdvReac Type Severity Reaction Status Date / Time
No Known Allergies Allergy Verified 10/19/23 10:10
Medication Instructions Recorded
Atorvastat/Clopidogrel/Aspirin 1 tab PO DAILY Heart Disease/Blood 10/19/23
Clot Prevention
dapagliflozin propanediol 10 mg 10 mg PO DAILY Diabetes 10/19/23
tablet
sitagliptin phosphate 50 1 tab PO BID Diabetes 10/19/23
mg-metformin 500 mg tablet
valsartan 160 1 tab PO DAILY Blood Pressure 10/19/23
mg-hydrochlorothiazide 12.5 mg
tablet
Review of Systems
-
History Source: Patient and Family
Constitutional: Reports No Symptoms
EENT: Reports No Symptoms
Respiratory: Reports Trouble Breathing
Cardiac: Reports No Symptoms
Abdomen/GI: Reports Abdominal Pain and Nausea
: Reports No Symptoms
Musculoskeletal: Reports No Symptoms
Skin: Reports No Symptoms
Neurological: Reports No Symptoms
Vital Signs
Temp Pulse Resp BP Pulse Ox
98.1 F 89 18 126/56 97
10/20/23 07:00 10/20/23 08:17 10/20/23 07:00 10/20/23 08:17 10/20/23 07:00
Physical Exam
Exam
General: Well Developed, Well Nourished and No Apparent Distress
HEENT: Normocephalic, Anicteric and Atraumatic
Respiratory: Clear
Cardiac: S1/S2 and Regular Rhythm
Breast: Deferred by me
GI: Soft, Non Distended, Normal Bowel Sounds and Tender (Mildly tender to the right upper quadrant and left upper quadrant)
Musculoskeletal: No Edema
Skin: Warm and Dry
Neuro: Awake and Alert
Psych: Calm
Results
WBC 7.4 10^3/uL (4.8-10.8) 10/20/23 05:20
Hgb 8.3 g/dL (12.0-16.0) L 10/20/23 05:20
Hct 29.1 % (37.0-47.0) L 10/20/23 05:20
MCV 67.8 fL (81.0-99.0) L 10/20/23 05:20
Plt Count 322 10^3/uL (130-400) 10/20/23 05:20
Absolute Neuts (auto) 5.3 10^3/uL (1.4-6.5) 10/19/23 11:28
Sodium 134 mmol/L (135-145) L 10/20/23 05:20
Potassium 5.0 mmol/L (3.5-5.1) 10/20/23 05:20
Chloride 105 mmol/L (98-107) 10/20/23 05:20
Carbon Dioxide 25 mmol/L (22-30) 10/20/23 05:20
BUN 21 mg/dl (7-17) H 10/20/23 05:20
Creatinine 1.2 mg/dL (0.6-1.0) H 10/20/23 05:20
Calcium 8.9 mg/dl (8.4-10.2) 10/20/23 05:20
Total Bilirubin 1.0 mg/dl (0.2-1.3) 10/20/23 05:20
AST 79 U/L (14-36) H 10/20/23 05:20
ALT 78 U/L (0-35) H 10/20/23 05:20
Alkaline Phosphatase 70 U/L (38-126) 10/20/23 05:20
Lipase 105 U/L (23-300) 10/19/23 11:28
Hepatitis C Antibody Negative (Negative) 10/20/23 05:20
Diagnostic Image Results:
10/20/23 US abdomen:
'IMPRESSION:
1. Gallbladder wall thickening is nonspecific and may be reactive or secondary to partial contraction, less likely acalculus cholecystitis. No cholelithiasis or bile duct dilatation.
2. Horseshoe kidneys.
3. Large bilateral renal pelvic calcifications, as seen on the recent prior CT.'
10/19/23 CXR:
'IMPRESSION:
1. Mild pulmonary edema. Mild cardiomegaly.
2. Small bilateral pleural effusions, right greater than left, better demonstrated on concurrent CT abdomen and pelvis.'
10/19/23 CT A/P w/o contrast:
IMPRESSION:
'1. Horseshoe kidney. Large stones, within each renal pelvis, without significant hydronephrosis on either side.
2. Bilateral pleural effusions. Small amount of diffuse intraperitoneal ascites. Small pericardial effusion.
3. Mild wall thickening involving the urinary bladder, without adjacent inflammatory change. Findings may be reflective of cystitis.
4. Severe coronary arterial calcification. Please correlate with symptoms of and risk factors for coronary artery disease, with further workup as clinically appropriate.
5. Right lower lobe lung nodule measuring 5 mm in diameter. As per Fleischner Society recommendations, no further CT follow-up is required unless the patient is high risk for lung carcinoma, in which case a follow-up chest CT should be considered in
approximately 12 months.'
Prior GI Procedures:
EGD: none
Colonoscopy: none
Assessment / Plan
-
The patient is a 68-year-old female who previously lived in [facility], with a past medical history significant for hypertension, type 2 diabetes, hyperlipidemia, kidney stones with lithotripsy, who presents to the emergency room complaints of abdominal
discomfort. We are being asked to evaluate for the presenting symptoms with ongoing nausea. The pt admits to 1 week of abdominal pain with nausea. Similar to prior episodes of kidney stones. CT/US as above showing large non-obstructing kidney
stones, GBWT without cholelithiasis, and other findings as noted above. Also concern for acute CHF with elevated proBNP >7000, CXR showing mild pulmonary vascular congestion. Also found to be anemic hgb 9.0 but unclear baseline. No signs of overt
bleeding currently. Evidence of iron deficiency anemia on labs.
Problem list:
-abdominal pain
-nausea
-hx kidney stones with lithotripsy, +nonobstructing stones bilaterally
-US showing GBWT without cholelithiasis or biliary ductal dilation
-CHF with elevated ProBNP, b/l pleural effusions, small pericardial effusion
-Iron deficiency anemia
Other pertinent medical hx:
-HTN
-HLD
-DM2
Recommendations:
-Etiology of current symptoms possibly 2/2 to kidney stones v biliary etiology with GBWT on US v gastritis v gastroparesis (hx Diabetes) v other. Currently symptoms are improved although still with some upper abdominal tenderness.
-Agree with PPI once daily
-If pain is recurrent or not resolving then consider EGD inpatient, otherwise she will need an eventual colonoscopy/EGD for her anemia work-up
-Monitor H/H
-Heme test stools
-Add celiac panel
-Will give IV iron with low iron studies
-Will follow
Data Reviewed
-
CT Scan: Report Reviewed by me
Ultrasound: Report Reviewed by me
-
-
Thank you for consultation and allowing me to participate in the patient's care. Please call the collections professional GI physician during the after hours with any questions or concerns.
[2023-10-20 11:00] VITALS: BP 113/76
[2023-10-20] MEDS: PROTONIX IV 40 MG IV (11:26)
[2023-10-20] MEDS: NSS (PRESERVATIVE FREE) 10 ML IV (11:34)
[2023-10-20 12:10] LABS: Hematocrit 30.3 % (37.0-47.0); Hemoglobin 8.6 g/dL (12.0-16.0)
[2023-10-20 12:10] LABS: Glucose - Point of Care 119 mg/dl (70-99)
--- NOTE | 2023-10-20 13:44 | CM ---
Addendum entered by Marcie Loredo 10/20/23 14:45:
Left VM for HRSI, await TCB.
Original Note:
Spoke with patients daughter bedside.
Patient is staying with daughter while visiting from [facility].
Patient independent prior to admission.
Patient does not use assistive devices.
Patient does not drive.
Patient does not have a PCP here.
Patient would use the [facility] in [place] for medications if needed.
Per daughter, she does not have the money to private pay for the hospital stay.
[2023-10-20 14:28] VITALS: BMI 27.4
[2023-10-20 15:00] VITALS: BP 132/83
--- NOTE | 2023-10-20 16:00 | CON.GS ---
Medical History
-
Chief Complaint: Abdominal pain and nausea
History of Present Illness:
Patient is a 68 yo F with a PMH of HTN, HLD, CAD, NIDDM, and s/p orthopedic procedures who presents with abdominal pain and distention. History is obtained from her daughter. Reports approximately 1 week of abdominal pain and bloating. No clear
association with food intake. No prior episodes. Associated nausea, but no vomiting. Passing flatus and stools. No fevers or chills. No jaundice, pale stools, or tea colored urine.
Past Medical History
Past Medical History: CAD, HTN, Hypercholesterolemia and NIDDM
Past Surgical History: Orthopedic
Social History
Tobacco: Non-Smoker
Alcohol: None
Drug: None
Living: With Family
Family History
Family History: Reviewed & Noncontributory
Allergies / Home Medications
Allergy/AdvReac Type Severity Reaction Status Date / Time
No Known Allergies Allergy Verified 10/19/23 10:10
Medication Instructions Recorded Confirmed Type
Atorvastat/Clopidogrel/Aspirin 1 tab PO DAILY Heart Disease/Blood 10/19/23 10/19/23 History
Clot Prevention
dapagliflozin propanediol 10 mg 10 mg PO DAILY Diabetes 10/19/23 10/19/23 History
tablet
sitagliptin phosphate 50 1 tab PO BID Diabetes 10/19/23 10/19/23 History
mg-metformin 500 mg tablet
valsartan 160 1 tab PO DAILY Blood Pressure 10/19/23 10/19/23 History
mg-hydrochlorothiazide 12.5 mg
tablet
Review of Systems
-
A 10 point review of systems was completed, and was negative except as per HPI.
Physical Exam
Vital Signs
Temp Pulse Resp BP Pulse Ox
97.6 F 74 18 113/76 98
10/20/23 11:00 10/20/23 11:00 10/20/23 11:00 10/20/23 11:00 10/20/23 11:00
10/19/23 10/20/23 10/21/23
06:59 06:59 06:59
Actual Weight 55.384 kg
Body Mass Index (BMI) 27.4
Lab Results
10/20/23 12:00
10/20/23 05:20
WBC 7.4 10^3/uL (4.8-10.8) 10/20/23 05:20
Hgb 8.6 g/dL (12.0-16.0) L 10/20/23 12:00
Hct 30.3 % (37.0-47.0) L 10/20/23 12:00
Plt Count 322 10^3/uL (130-400) 10/20/23 05:20
Abs Immat Gran (auto) 0.0 10^3/uL (0-0.05) 10/19/23 11:28
Neutrophils % 68.2 % (42.2-75.2) 10/19/23 11:28
Physical Exam
General: Well Developed, Well Nourished and No Apparent Distress
HEENT: Normocephalic and Anicteric
Respiratory: Non Labored Respirations
Cardiac: Regular Rhythm
GI: Soft, Tender (Tenderness in mid central abdomen, negative Bansal's sign), Distended (Mild), Obese and Other (Non-peritoneal)
Musculoskeletal: No Edema
Skin: Warm and Dry
Neuro: Nonfocal/Grossly Intact
Data Reviewed
-
CT Scan: Image Personally Visualized and interpreted and Report Reviewed by me
Ultrasound: Report Reviewed by me
Labs: Labs Reviewed by me
Assessment / Plan
-
Patient is a 68 uo F p/w abdominal pain and distension.
General surgery consult for possible cholecystitis. Clinically and radiographically patient does not appear to have cholecystitis. CT scan without significant distention or associated inflammation of the gallbladder (though limited noncontrast
study). Ultrasound without significant wall thickening or pericholecystic fluid and no calculi identified. Labs notable for normal WBC, mild elevation in LFTs, but normal bilirubin and ALP. LFT elevations more likely related to fatty liver
disease and/or cardiac in nature. No plans or indication for cholecystectomy at this time. No radiographic evidence of a bowel obstruction, though limited CT scan without oral IV contrast. Could consider repeat CT scan imaging with PO and IV
contrast if diagnosis is still uncertain. At this point in time it appears as though his this is mostly Urologic in nature given her significant stone burden's, radiographic evidence of cystitis, and reported hematuria.
-- No plans or indication for cholecystectomy
-- Please call with any questions or concerns
[2023-10-20 16:57] LABS: Glucose - Point of Care 139 mg/dl (70-99)
[2023-10-20 17:25] LABS: Hepatitis B Surface Antigen Negative (Negative)
[2023-10-20 17:30] LABS: Hepatitis A IgM Antibody Negative (Negative)
[2023-10-20 17:42] LABS: Hepatitis B Core Ab, Total Reactive (Negative); Hepatitis B Surface Antibody Positive
[2023-10-20 17:50] LABS: Hepatitis A Antibody, Total Positive (Negative)
[2023-10-20] MEDS: STERILE WATER FOR INJECTION 10 ML IV (18:06)
[2023-10-20] MEDS: ROCEPHIN 1000 MG IV (18:06)
[2023-10-20] MEDS: TOPROL XL 25 MG PO (20:05)
[2023-10-20 20:31] VITALS: BP 112/64
[2023-10-20 22:04] LABS: Glucose - Point of Care 134 mg/dl (70-99)
[2023-10-20 23:22] VITALS: BP 93/59
[2023-10-21 04:58] VITALS: BP 108/66
[2023-10-21 05:01] VITALS: BMI 27.4
[2023-10-21 07:15] VITALS: BP 143/75
[2023-10-21 07:41] LABS: Glucose - Point of Care 163 mg/dl (70-99)
[2023-10-21 08:02] LABS: % Basophils 0.9 % (0-2); % Eosinophils 1.9 % (0-6); % Immature Granulocytes 0.2 % (0-0.5); % Lymphocytes 10.7 % (20.5-51.1); % Monocytes 13.2 % (1.7-9.3); % Neutrophils 73.1 % (42.2-75.2); Absolute Basophils 0.1 10^3/uL (0-0.2); Absolute Eosinophils 0.2 10^3/uL (0-0.7); Absolute Lymphocytes 0.9 10^3/uL (1.2-3.4); Absolute Monocytes 1.1 10^3/uL (0.1-0.6); Absolute Neutrophils 6.2 10^3/uL (1.4-6.5); Hematocrit 30.8 % (37.0-47.0); Hemoglobin 8.5 g/dL (12.0-16.0); Mean Corp Hgb Conc. 27.6 g/dL (33.0-37.0); Mean Corpuscular Hgb 19.3 pg (27.0-31.0); Nucleated Red Blood Cells % 0.7 %; Platelet Count 336 10^3/uL (130-400); Red Cell Dist. Width 18.7 % (11.5-14.5); White Blood Cell Count 8.5 10^3/uL (4.8-10.8)
[2023-10-21] MEDS: PROTONIX IV 40 MG IV (08:15)
[2023-10-21] MEDS: ASPIR LOW (ENTERIC COATED) 81 MG PO (08:15)
[2023-10-21] MEDS: FARXIGA 10 MG PO (08:15)
[2023-10-21] MEDS: NSS (PRESERVATIVE FREE) 10 ML IV (08:15)
[2023-10-21] MEDS: JANUVIA 50 MG PO ×2 (08:15→16:12)
[2023-10-21] MEDS: DIOVAN PO (08:21)
[2023-10-21] MEDS: NOVOLOG FLEXPEN-LOW RESISTANCE 2 UNITS SC (08:21)
[2023-10-21 08:23] LABS: Glucose - Point of Care 209 mg/dl (70-99)
[2023-10-21 08:35] LABS: ALT (SGPT) 70 U/L (0-35); AST (SGOT) 67 U/L (14-36); Albumin 3.4 g/dl (3.5-5.0); Alkaline Phosphatase 64 U/L (38-126); Blood Urea Nitrogen 23 mg/dl (7-17); Carbon Dioxide 20 mmol/L (22-30); Chloride 103 mmol/L (98-107); Estimated Creatinine Clearance 34 ml/min; Glucose 172 mg/dl (70-99); Potassium 4.1 mmol/L (3.5-5.1); Sodium 137 mmol/L (135-145); Total Protein 5.5 g/dl (6.3-8.2); eGFR 54.39
--- NOTE | 2023-10-21 10:14 | W.PN.HOSP.TC ---
Addendum entered and electronically signed by Kehinde Quinones DO 10/21/23 15:20:
Resume furosemide 40 mg once daily.
Updated daughter on the phone.
Plan to discharge home this evening, follow-up with PCP, cardiology, urology, GI.
Original Note:
Today's Communication/Plan
-
Advance diet
Possible discharge
Assessment / Plan
Assessment / Plan
Gen-AAOx3, NAD
HEENT-NC, AT, anicteric, clear oral mm
Neck-supple
CV-reg, no M, +S1/S2
Lungs-clear B/L
Abd-soft, NT, ND
Ext-no edema
Musculoskeletal-no cyanosis, clubbing
Skin-warm and dry
Neuro-grossly non-focal
Psych-calm, cooperative
Abdominal pain with nausea -unclear etiology. Symptoms improving. Patient requesting to go home today.
Abdominal ultrasound shows gallbladder wall thickening nonspecific, no cholelithiasis or biliary ductal dilation. Horseshoe kidneys noted.
CT scan shows incidental right lower lung nodule measuring 5 mm in diameter. Severe coronary calcification. Mild urinary bladder wall thickening.
Appreciate urology and GI input. No intervention indicated. Advance diet as tolerated.
New diagnosis of cardiomyopathy -asymptomatic. Appreciate cardiology input. Echocardiogram shows LVEF 40%, stage II diastolic dysfunction, global hypokinesis, moderate MR. Will need outpatient stress test. Discussed with Dr. Cortes.
Elevated LFTs - possibly representing passive congestion. Hepatitis serologies show evidence of prior hepatitis B infection.
Hematuria and Nephrolithiasis -urinalysis only shows 0-2 WBCs, RBCs and blood noted. Doubt UTI. Can discontinue antibiotics and observe. Culture pending.
DM2 with hyperglycemia - continue dapagliflozin, sitagliptin, resume metformin.
Essential hypertension--> continue valsartan. HCTZ discontinued due to hyponatremia. Toprol-XL added.
Hyperlipidemia-->hold atorvastatin in setting of slightly elevated LFTs.
Microcytic anemia -unknown chronicity. Labs consistent with iron deficiency anemia. Will need outpatient workup.
DVT proph-->SCDs
Full code
Dispo -possible discharge later today if she tolerates her diet. Will need outpatient follow-up.
Anticipated Discharge: Today
Subjective/Interval History
-
Date of Service: October 21, 2023
Patient seen and examined. Feeling better overall. No complaints. Used language line to speak with her.
Objective Data
-
Labs:
Laboratory Results
10/21/23
07:33
WBC 8.5
Hgb 8.5 L
Hct 30.8 L
Plt Count 336
Sodium 137
Potassium 4.1
Chloride 103
Carbon Dioxide 20 L
BUN 23 H
Creatinine 1.1 H
Glucose 172 H
Calcium 9.0
Total Bilirubin 1.0
AST 67 H
ALT 70 H
Alkaline Phosphatase 64
Vital Signs:
Vital Signs
Temp Pulse Resp BP Pulse Ox
97.5 F 78 18 98/60 98
10/21/23 07:15 10/21/23 08:21 10/21/23 07:15 10/21/23 08:21 10/21/23 07:15
I&O
10/20/23 10/21/23 10/22/23
06:59 06:59 06:59
Intake Total 240 / 240 720 / 720
Output Total 250 / 250
Balance 240 / 240 470 / 470
Review of Systems
-
Unable to obtain full review of systems at this time due to: Language Barrier
History Source: Patient
All other systems: Reviewed and negative
--- NOTE | 2023-10-21 10:44 | W.PN.UPDATE ---
Update Note
Progress Note Update
I did stop back to see the patient to give her our office card and appointment which is scheduled for 11/08 at 11:30 AM with our PA Iman Nicolas for workup of her anemia. [facility] used #[id number]. She denies prior history of anemia or signs of bleeding
currently. Stool was brown which was visualized in the toilet unable to heme test. Also noted with a positive hep B core total antibody with a negative Hep B Antigen indicating prior infection now with immunity. She denies prior known Hep B
infection. With abnormal LFTs she will need further outpatient workup which she is aware of. Further outpatient w/u for anemia as well as she has not had prior EGD/colon. I advised her to call the office if she cannot make her appointment.
--- NOTE | 2023-10-21 11:02 | W.PN.CD ---
Today's Communication / Plan
-
will reduce valsartan to 80mg daily
continue remaining meds
F/u arranged in our clinic for further evaluation and care of CMY
D/w Dr Quinones, will sign off
Impression / Plan
-
Abdominal bloating
-Nausea with emesis, and abdominal paint
-poor oral intake, hold further diuresis
-evaluation seems to be consistent with nephrolithiasis
-I don't suspect a cardiac issue is attributable to presenting symptoms.
CMY:
-Echo with global HK and EF 40%
-Mod MR
-not in CHF.
-will add GDMT as able:
-already on sglt2 inhibitor, arb(hold hctz)--will reduce dose and added BB
-conisider MRA if bp allows as outpient (currently no bp room)
-will not intensify to Entresto given TOMAS
-Outpatient Stress MIBI given anemia and hematuria.
-CHF team c/s
-D/w diagnosis and chf plan at length with the language line
-Fu arranged, will follow up on anemia and if improved proceed to stress mibi
TOMAS: after lasix, not volume overloaded
Coronary artery calcifications
-On DAPT (ASA & clopidogrel), denies stenting, would recommend single agent
-Chest pain free with stable EKG
HTN,as above
Renal insufficiency, consider holding metformin
Transaminitis
Anemia, type unknown, per primary
Microscopic hematuria with horseshoe kidney, Urology following
Type II DM, Hgba1c 7.0%
Dyslipidemia, atorvastatin on hold with elevated LFTs
Subjective:
feeling much better, no cp or sob. At home some shaikh when climbing stairs with division [employer].
TTE: 10/20/23:CONCLUSIONS
�Mildly reduced left ventricular systolic function.� Global hypokinesis.
�Left ventricular ejection fraction is 40% by volumetric assessment.
�Stage II diastolic dysfunction.
�Moderate mitral regurgitation.
�No prior study available for comparison.
Physical Exam
Vital Signs/Labs
Vital Signs
Temp Pulse Resp BP Pulse Ox
97.5 F 78 18 98/60 98
10/21/23 07:15 10/21/23 08:21 10/21/23 07:15 10/21/23 08:21 10/21/23 07:15
10/20/23 10/21/23 10/22/23
06:59 06:59 06:59
Actual Weight 55.384 kg 55.48 kg
10/21/23 07:33
10/21/23 07:33
Magnesium 1.7 mg/dl (1.6-2.3) 10/20/23 05:20
Triglycerides 103 mg/dl (10-149) 10/20/23 05:20
LDL Cholesterol, Calc 34 mg/dl 10/20/23 05:20
VLDL Cholesterol, Calc 20 mg/dl (0-30) 10/20/23 05:20
HDL Cholesterol 22 mg/dl 10/20/23 05:20
10/19/23
13:07
Xyh-N-Hfzpcdmmdyg Pept 7750
LAB Results
10/19/23 10/19/23
13:07 22:00
Troponin I 0.015 0.017
Physical Exam
Constitutional: No acute distress
Cardiovascular: Rhythm & rate is regular, Pedal edema is absent, JVD pressure is normal, Systolic murmur absent and Diastolic murmur absent
Respiratory: Respiratory effort normal, Lungs clear to auscul., Wheeze Absent, Crackles Absent and Rhonchi Absent
GI: Soft and Other (slight epigastric tenderness)
Neuro/Psych: AO x 3
Data Reviewed
-
Date of Service: October 21, 2023
EKG: Other (tele nsr)
X-Ray/CT/US/MRI/NUC/PET: Discussed with Physician (see note, no active cardiac issue will sign off) and Discussed with Patient (with the language line )
[2023-10-21 11:03] VITALS: BP 104/66
[2023-10-21 11:28] LABS: Glucose - Point of Care 123 mg/dl (70-99)
[2023-10-21] MEDS: NOVOLOG FLEXPEN-LOW RESISTANCE SC (11:45)
[2023-10-21] MEDS: FERRLECIT 110 MG IV (13:18)
[2023-10-21 15:18] VITALS: BP 112/72
--- NOTE | 2023-10-21 15:58 | W.DS.TRANS ---
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
-
Discharge Instructions:
Sleep Apnea Risk Low
Discharge Diagnosis/Procedures Cardiomyopathy, renal calculi
Diet 2 Gram Sodium,Diabetic, Carb Controlled
Activity As tolerated
Driving Restrictions As prior to admission
Bathing Restrictions None
Blood Work CBC in 1 week- prior to cardiology office visit
Others Tests Stress test (after cardiology follow-up visit,
and labs)- cardiology office will arrange
Stop these medications: Stop hydrochlorothiazide, continue valsartan.
Stop clopidogrel. Continue aspirin.
Stop atorvastatin given liver enzyme elevation.
Instructions:
Stand-Alone Forms:
Changes to Home Medications: Yes
Discharge Medications:
DC Medications w/original date entered in [facility]
dapagliflozin propanediol 10 mg tablet 10 mg PO DAILY Diabetes 10/19/23
sitagliptin phosphate 50 mg-metformin 500 mg tablet 1 tab PO BID Diabetes 10/19/23
aspirin 81 mg tablet,delayed release 81 mg PO DAILY #0 tabs 10/21/23
furosemide 20 mg tablet 20 mg PO DAILY #30 tabs 10/21/23
metoprolol succinate 25 mg tablet,extended release 24 hr 25 mg PO 2000 #30 tabs 10/21/23
valsartan 80 mg tablet 80 mg PO DAILY #30 tabs 10/21/23
Home Medication Changes
Stop clopidogrel
Stop hydrochlorothiazide
Hold atorvastatin until your LFTs improved
Pending Results: No
[2023-10-21] MEDS: LASIX 40 MG PO (16:06)
[2023-10-21] MEDS: NOVOLOG FLEXPEN-LOW RESISTANCE 1 UNITS SC (16:12)
[2023-10-21 16:13] LABS: Glucose - Point of Care 179 mg/dl (70-99)
[2023-10-21] MEDS: FLUZONE HIGH-DOSE QUAD 2023-24 0.699999999999999956 ML IM (16:33)
--- NOTE | 2023-10-21 17:13 | CM ---
CM following re: d/c planning
Chart reviewed
Pt is medically stable for d/c
CM spoke with the patient's daughter Baldev at bedside to discuss MA process
CM sent Janet Gao a message and she will f/u with the patient's daughter in the a.m.
No additional d/c needs to note
PLAN; d/c home no needs
[2023-10-21 23:36] LABS: IgA 174 mg/dl (70-400)
[2023-10-24 15:19] LABS: Endomysial IgA Antibody Titer <1:10 (<1:10)
[2023-10-28 13:16] LABS: tTG IgA Antibody 5.1 EU/ml (0-19); tTG IgG Antibody 9.6 EU/ml (0-19)
== END 2023-10-21 17:08 | disposition home or self-care (01) | DRG 315 ==
LOC: 4 EAST ACU 11:57
PROVIDERS: Hospitalist; Nurse Practitioner Family; Nurse Practitioner Gerontology; Physician Assistant Medical; Registered Nurse; ADMITTING PHYSICIAN Internal Medicine; ATTENDING PHYSICIAN Hospitalist; CONSULT PHYSICIAN Internal Medicine Cardiovascular Disease; CONSULT PHYSICIAN Internal Medicine Gastroenterology; CONSULT PHYSICIAN Surgery; EMERGENCY PHYSICIAN Emergency Medicine; OTHER PHYSICIAN Internal Medicine Cardiovascular Disease
DX: I42.9 Cardiomyopathy, unspecified (principal); I31.39 Other pericardial effusion (noninflammatory); R18.8 Other ascites; N17.9 Acute kidney failure, unspecified; N20.0 Calculus of kidney; I48.91 Unspecified atrial fibrillation; I25.10 Atherosclerotic heart disease of native coronary artery without angina pectoris; I11.0 Hypertensive heart disease with heart failure; I50.9 Heart failure, unspecified; Q63.1 Lobulated, fused and horseshoe kidney; E11.9 Type 2 diabetes mellitus without complications; Z79.82 Long term (current) use of aspirin; E78.00 Pure hypercholesterolemia, unspecified; E78.49 Other hyperlipidemia; D50.9 Iron deficiency anemia, unspecified; N28.9 Disorder of kidney and ureter, unspecified
CPT/HCPCS: 71046; 74176; 76700; 80053; 80061; 81003; 81015; 82607; 82728; 82746; 82784; 82962; 83036; 83516; 83540; 83550; 83690; 83735; 83880; 84443; 84484; 85014; 85018; 85025; 85027; 86231; 86704; 86706; 86708; 86709; 86803; 87086; 87340; 90662; 93005; 93306; 96361; 96374; 96375; 99285; G0008; J2916

== ENCOUNTER → 2023-10-28 16:12 | Outpatient (REF) | payer OTHER, SELFPAY ==
[2023-10-28 17:43] LABS: % Basophils 0.7 % (0-2); % Eosinophils 3.8 % (0-6); % Immature Granulocytes 0.4 % (0-0.5); % Lymphocytes 15.6 % (20.5-51.1); % Monocytes 11.5 % (1.7-9.3); Absolute Basophils 0.1 10^3/uL (0-0.2); Absolute Eosinophils 0.3 10^3/uL (0-0.7); Absolute Lymphocytes 1.1 10^3/uL (1.2-3.4); Absolute Monocytes 0.8 10^3/uL (0.1-0.6); Absolute Neutrophils 4.6 10^3/uL (1.4-6.5); Hematocrit 32.2 % (37.0-47.0); Hemoglobin 8.7 g/dL (12.0-16.0); Mean Corpuscular Hgb 19.2 pg (27.0-31.0); Mean Corpuscular Volume 71.1 fL (81.0-99.0); Nucleated Red Blood Cells % 0.4 %; Platelet Count 242 10^3/uL (130-400); Red Blood Cell Count 4.53 10^6/uL (4.20-5.40); Red Cell Dist. Width 21.1 % (11.5-14.5); White Blood Cell Count 6.8 10^3/uL (4.8-10.8)
[2023-10-28 18:11] LABS: ALT (SGPT) 41 U/L (0-35); AST (SGOT) 20 U/L (14-36); Albumin 3.7 g/dl (3.5-5.0); Alkaline Phosphatase 72 U/L (38-126); Blood Urea Nitrogen 13 mg/dl (7-17); Calcium 9.7 mg/dl (8.4-10.2); Carbon Dioxide 19 mmol/L (22-30); Chloride 103 mmol/L (98-107); Glucose 175 mg/dl (70-99); Potassium 4.1 mmol/L (3.5-5.1); Sodium 139 mmol/L (135-145); Total Bilirubin 0.9 mg/dl (0.2-1.3); Total Protein 5.9 g/dl (6.3-8.2); eGFR > 60.00
== END ==
LOC: REG 16:12
PROVIDERS: ATTENDING PHYSICIAN Nurse Practitioner
DX: D64.9 Anemia, unspecified (principal); I42.9 Cardiomyopathy, unspecified
CPT/HCPCS: 36415; 80053; 85025

== ENCOUNTER 2023-11-07 23:56 | Inpatient (IN) | payer OTHER, SELFPAY ==
[2023-11-07 20:18] VITALS: BP 150/100
--- NOTE | 2023-11-07 20:59 | ED.GENMED ---
History of Present Illness
General
Chief Complaint: Abdominal Symptoms
Source: patient and family
Exam Limitations: other (Language barrier)
Time Seen by Provider: 11/07/23 20:34
Travel History
Have you had any contact with someone who has COVID-19?: No
Do you have any symptoms of coronavirus? Fever > 100 degrees, chills, cough, shortness of breath, sore throat, loss of taste or smell, muscle aches, or headache?: No
History of Present Illness
History of Present Illness:
This is a 68 year old female that doesn't speak [place] Island[place]. Family states that they are bringing her in with abd pain and distention. States that her legs are also swelling and she feels SOB. States that the patient is feeling weak. States that she
has been here before for this. States that she is also dizzy. States that she had a normal BM today. Denies any fever, chills, chest pain, nausea, vomiting, diarrhea, headache, urinary burning.
Past History
Past History
ED Past Medical History: CHF, HTN, NIDDM and Other (Renal calculus)
ED Past Surgical History: Orthopedic (Bilateral knee surgery, ) and Urological (Lithotripsy)
Social History
Tobacco: Non-smoker
Alcohol: None
Drug: None
Personal:
Living: with family
Review of Systems
Review of Systems
All Other Systems: ROS reviewed and negative except as documented in HPI and ROS
Constitutional: Reports no symptoms; Denies fever or chills
EENT: Reports no symptoms
Respiratory: Reports trouble breathing; Denies cough
Cardiac: Denies chest pain
ABD/GI: Reports abdominal pain and other (Distention); Denies nausea, vomiting or diarrhea
: Reports no symptoms; Denies dysuria, frequency or urgency
Musculoskeletal: Reports edema (lower legs)
Skin: Reports no symptoms
Neurological: Reports dizzy; Denies headache
Psychiatric: Reports no symptoms
Phy Exam
General Physical Exam
General Presentation: no apparent distress
General age: appears stated age
General Skin: warm and dry
General Habitus: elderly
General Mental: alert
General Hydration: appears well hydrated
ENT Exam
ENT Exam: TM's normal, pharynx normal and neck supple
Eye Exam
Eye Exam: EOMI
Cardiovascular Exam
Cardiovascular Exam: normal peripheral pulses and tachycardia
Pulmonary Exam
Pulmonary Exam: chest non tender, no rhonchi, no wheezing, no cough and other (Rales at bases)
Gastrointestinal Exam
Gastrointestinal Exam: normal bowel sounds, soft, no organomegaly, ascites and tender (generalized tenderness with palpation)
Musculoskeletal Exam
Musculoskeletal Exam: full ROM and edema (Trace ankle edema)
Skin Exam
Skin Exam: normal color, warm/dry, no rash and no petechia
Psychiatric Exam
Psychiatric Exam: normal mood/affect
Course
Orders/Labs/Results
Orders:
Orders
11/07/23 20:26
Electrocardiogram (*1) Urgent
Reason for Study: Abdominal Pain
EKG- Treatment ONCE
11/07/23 20:58
US Abdomen Complete/Upper Urgent
Comment:
Reason For Exam: abd distention, pain
11/07/23 20:59
Electrocardiogram (*1) Urgent
Reason for Study: Shortness of Breath
EKG- Treatment ONCE
CR Chest - 2 Views Urgent
Comment:
Reason For Exam: SOB
11/07/23 21:16
BNP [NT-proBNP] Urgent
Basic Metabolic Panel Urgent
Complete Blood Count/With Diff Urgent
Troponin I Urgent
11/07/23 22:46
Furosemide [Lasix] 40 mg IV NOW STA
Abnormal Lab Results
11/07/23
21:16
Hgb 9.2 L g/dL
(12.0-16.0)
Hct 33.2 L %
(37.0-47.0)
MCV 68.3 L fL
(81.0-99.0)
MCH 18.9 L pg
(27.0-31.0)
MCHC 27.7 L g/dL
(33.0-37.0)
RDW 21.6 H %
(11.5-14.5)
MPV 10.7 H fL
(7.4-10.4)
Absolute Monos (auto) 0.8 H 10^3/uL
(0.1-0.6)
Lymphocytes % 16.6 L %
(20.5-51.1)
Monocytes % 10.2 H %
(1.7-9.3)
Sodium 134 L mmol/L
(135-145)
Chloride 108 H mmol/L
(98-107)
Carbon Dioxide 13 L* mmol/L
(22-30)
Glucose 154 H mg/dl
(70-99)
11/07/23 21:16
11/07/23 21:16
H/H low but improved from prior labs, carbon dioxide low. Glucose nonfasting. Troponin 0.029, Pro-BNP 12,100 Higher from then prior Pro-BNP
Vital Signs
Initial and Last Documented VS:
Initial Vital Signs
Temp Pulse Resp BP Pulse Ox
97.9 F 126 24 150/100 100
11/07/23 20:18 11/07/23 20:18 11/07/23 20:18 11/07/23 20:18 11/07/23 20:18
Last Documented Vital Signs
Temp Pulse Resp BP Pulse Ox
97.8 F 117 25 138/95 100
11/07/23 22:50 11/07/23 22:50 11/07/23 21:22 11/07/23 22:50 11/07/23 22:50
MDM/Problems Addressed
Differential Diagnosis Includes:
CHF, Ascites,
MDM/Problems Addressed:
This is a 68 year old female that comes in with c/o abd distention and pain. Family states that she has been SOB, slight leg swelling and her abd is very distended. States that she feels weak. Patient does not have a PCP as just got her [place] card.
Will get labs, US,.
Back into see patient and family. Explained that she would be admitted as there is extra fluid in the lungs and some in the right upper quadrant. Will admit patient and give IV Lasix. Hospitalist iveth.
Chronic conditions affecting care:
CHF
Acute Exacerbation and/or Progression of Chronic Illness:
CHF
*Radiology
Radiology exam reviewed: preliminary read by ED provider (Chest- Right pleural effusion with increased vascular congestion. ), radiology read reviewed (US [place]- Right sided pleural effusion. Small amount of free fluid in the right upper
quadrant. Hyperechoic fatty liver. Normal gallbladder. No gallstones or sludge. Negative Bansal's sign. No biliary ductal dilatation. Limited evaluation of known horseshoe kidney without hydronephrosis, focal) and other (US cont= focal mass or
stones. )
*Pulse Oximetry
Patient hypoxic: no
*EKG
Interpreted by ED Provider?: Yes
Heart Rate: 116
Rate: tachycardiac
Rhythm: sinus tachycardia
[place]: normal axis
Interval: normal interval
QRS Pattern: normal QRS
Ischemia: no ischemia (Checked by Dr. Handy)
*Real Time Trader Interpretation
Rate: tachycardiac
Heart Rate: 122
Rhythm: sinus tachycardia
*Critical Care Note
Total Time (30-74mins, 75-104mins- exclusive of procedures): Not Applicable
ED Attending Note
-
Portions of this chart may have been created with voice recognition software.� Occasional wrong word or��sound alike� substitutions may have occurred due to the inherent limitations of voice recognition software.
Discharge Plan
Departure
Patient Disposition: Admit
Date of Disposition: 11/07/23
Time of Disposition: 22:47
Admit to: Telemetry
Presentation/result/management discussed w/ accepting MD/DO: Hospitalist
Patient with high blood pressure during this ER visit?: Yes
Condition: Good
Covid-19: Not Applicable
Discharge Problem:
Pleural effusion on right, Abdominal ascites, SOB (shortness of breath), Increased vascular congestion
Prescriptions:
No Action
sitagliptin phos-metformin 50-500 mg Tablet
1 tab PO BID
dapagliflozin propanediol 10 mg Tablet
10 mg PO DAILY
valsartan 80 mg Tablet
80 mg PO DAILY Qty: 30 0RF
aspirin 81 mg Tablet,Delayed Release (Dr/Ec)
81 mg PO DAILY Qty: 0 0RF
metoprolol succinate 25 mg Tablet Extended Release 24 Hr
25 mg PO 2000 Qty: 30 0RF
furosemide 20 mg tablet
20 mg PO DAILY Qty: 30 0RF
Referrals:
NONE,* [Family Provider] -
Interventions
Interventions:
*Risk Screen - Suicide Last Done: 11/07/23 20:18
*General Assessment Last Done: 11/07/23 21:18
*Neglect/Abuse Screening Last Done: 11/07/23 20:18
ED- Fall Risk Assessment Last Done: 11/07/23 21:18
*ED COVID-19 Vaccine History Last Done: 11/07/23 21:18
SC-Dqbkth-Vzugbsvcct Assessment Last Done: 11/07/23 21:18
ED- Cardiac Assessment Last Done: 11/07/23 21:18
ED- Pulmonary Assessment Last Done: 11/07/23 21:18
ED-Skin Assessment Last Done: 11/07/23 21:18
[2023-11-07 21:18] VITALS: BMI 26.4
[2023-11-07 21:22] VITALS: BP 142/101
[2023-11-07 21:24] LABS: % Basophils 0.9 % (0-2); % Eosinophils 1.8 % (0-6); % Immature Granulocytes 0.4 % (0-0.5); % Lymphocytes 16.6 % (20.5-51.1); % Monocytes 10.2 % (1.7-9.3); % Neutrophils 70.1 % (42.2-75.2); Absolute Basophils 0.1 10^3/uL (0-0.2); Absolute Eosinophils 0.2 10^3/uL (0-0.7); Absolute Lymphocytes 1.4 10^3/uL (1.2-3.4); Absolute Monocytes 0.8 10^3/uL (0.1-0.6); Absolute Neutrophils 5.7 10^3/uL (1.4-6.5); Hematocrit 33.2 % (37.0-47.0); Hemoglobin 9.2 g/dL (12.0-16.0); Mean Corp Hgb Conc. 27.7 g/dL (33.0-37.0); Mean Corpuscular Hgb 18.9 pg (27.0-31.0); Mean Corpuscular Volume 68.3 fL (81.0-99.0); Mean Platelet Volume 10.7 fL (7.4-10.4); Nucleated Red Blood Cells % 1.1 %; Platelet Count 338 10^3/uL (130-400); Red Blood Cell Count 4.86 10^6/uL (4.20-5.40); Red Cell Dist. Width 21.6 % (11.5-14.5); White Blood Cell Count 8.1 10^3/uL (4.8-10.8)
[2023-11-07 21:46] LABS: NT-proBNP 12100 pg/ml; Troponin I 0.029 ng/ml
[2023-11-07 21:54] LABS: Blood Urea Nitrogen 13 mg/dl (7-17); Calcium 9.1 mg/dl (8.4-10.2); Carbon Dioxide 13 mmol/L (22-30); Chloride 108 mmol/L (98-107); Estimated Creatinine Clearance 54 ml/min; Glucose 154 mg/dl (70-99); Sodium 134 mmol/L (135-145); eGFR > 60.00
[2023-11-07 22:14] VITALS: BP 138/101
[2023-11-07 22:48] VITALS: BP 138/95
--- NOTE | 2023-11-07 22:48 | HPS.HSE ---
Family Physician
-
Family Physician: * NONE
Chief Complaint
-
SOB
History of Present Illness
68 y/o F with PMHx:
HFrEF
h/o prior HBV infection
DM2
Iron deficiency anemia
who p/w CC SOB. Patient does not speak [place]i. History is obtained via translation and from the patient's daughter and son-in-law at bedside. They too are poor historians. Since discharge on October 21, 2023 the patient has had persistent
shortness of breath. They have noted that her abdomen has increased in size. They also have noted that the patient has not been compliant with fluid restriction. They do report the patient is been compliant with her medications. No reports of
chest pain, nausea, vomiting, diarrhea, abdominal pain.
Medical History
Past Medical History
Past Medical History: Reports Other (as per HPI)
Past Surgical History: Reports Other (N/A)
Social History
Tobacco: Non-smoker
Alcohol: None
Drug: None
Family History
Family History: Not pertinent
Allergies / Home Medications
Allergies reflects when Allergies were last updated in [facility].
Home Medications with original date entered in [facility]
Allergy/Medication List:
Allergies
Allergy/AdvReac Type Severity Reaction Status Date / Time
No Known Allergies Allergy Verified 11/07/23 20:20
Home Medications
dapagliflozin propanediol 10 mg tablet 10 mg PO DAILY Diabetes 10/19/23
sitagliptin phosphate 50 mg-metformin 500 mg tablet 1 tab PO BID Diabetes 10/19/23
aspirin 81 mg tablet,delayed release 81 mg PO DAILY #0 tabs 10/21/23
furosemide 20 mg tablet 20 mg PO DAILY #30 tabs 10/21/23
metoprolol succinate 25 mg tablet,extended release 24 hr 25 mg PO 2000 #30 tabs 10/21/23
valsartan 80 mg tablet 80 mg PO DAILY #30 tabs 10/21/23
Review of Systems
-
History Source: Patient
A 12 point ROS was completed and negative except as noted: Yes
Physical Exam
Vital Signs
Vital Signs
Temp Pulse Resp BP Pulse Ox
97.9 F 117 25 150/100 100
11/07/23 20:18 11/07/23 21:22 11/07/23 21:22 11/07/23 20:18 11/07/23 21:18
Physical Exam
General: Other (.)
Laboratory Results
-
11/07/23 21:16
11/07/23 21:16
Laboratory Results
Total Bilirubin Cancelled 11/07/23 21:16
AST Cancelled 11/07/23 21:16
ALT Cancelled 11/07/23 21:16
Alkaline Phosphatase Cancelled 11/07/23 21:16
Troponin I 0.029 ng/ml 11/07/23 21:16
Impression/Plan
-
Gen: Appears mildly short of breath, mildly using accessory muscles to breathe, Awake and alert, NCAT
Eyes: EOMI, PERRLA, no scleral icterus.
Neck: supple.
CV: Tachycardic, regular rhythm, +S1/S2, no m/r/g.
Resp: CTAB, no rales, wheezes, or rhonchi.
Abd: +BS, soft, NT, moderate to severe distention with ascites
Skin: No rashes. No lower extremity edema
Neuro: CN 2-12 intact, non-focal.
Psych: Normal mood and affect.
CXR (read by me, official read pending): slight blunting of the costophrenic angles, cardiomegaly, no pulmonary edema appreciated.
Abd U/S pending
Acute on chronic HFrEF:
-Echo 10/20/23: EF 40%, G2DD, global hypokinesis, mod MR
-wt up nearly 6kg since 10/21/23
-proBNP 12,100
-Lasix 40mg IV given in ER, give another 40mg IV lasix now followed by 80mg IV BID
-c/s cardiology. Recommend inpt ischemic w/u as I don't see this pt having it done outpt.
-cont BB/SGLT2 inhibitor
Non-AG met acidosis:
-this may correct partially with diuresis (contraction alkalosis)
-do NOT want to give any IVFs at this time
-start NaHCO3 tabs 1300mg PO TID, if no improvement may need to c/s nephrology
DM2:
-recent a1c 7.0%
-cont SGLT2 inhibitor
-hold Sitagliptin/Metformin
-SSI/accuchecks/diabetic diet
Iron deficiency anemia:
-Hb stable
Repeat BMP STAT as hemolyzed (also want to confirm HCO3- is not erroneous)
Note: Pt's language is Gujarati/[place]am[place].
FULL/Lovenox
[2023-11-07 22:50] VITALS: BP 138/95
[2023-11-07 23:00] VITALS: BP 145/106
[2023-11-07 23:17] VITALS: BMI 25.8
[2023-11-07] MEDS: LASIX 40 MG IV (23:25)
[2023-11-07] MEDS: SODIUM BICARBONATE 1300 MG PO (23:38)
[2023-11-07 23:53] LABS: Blood Urea Nitrogen 13 mg/dl (7-17); Calcium 9.3 mg/dl (8.4-10.2); Carbon Dioxide 15 mmol/L (22-30); Chloride 109 mmol/L (98-107); Estimated Creatinine Clearance 61 ml/min; Glucose 143 mg/dl (70-99); Potassium 4.8 mmol/L (3.5-5.1); Sodium 134 mmol/L (135-145); eGFR > 60.00
[2023-11-08] VITALS (8 sets, daily range): BP systolic 108–150; BP diastolic 73–100; BMI 25.4; BMI 24.9
[2023-11-08] MEDS: TOPROL XL 25 MG PO ×2 (01:54→20:40)
[2023-11-08 02:04] LABS: Glucose - Point of Care 150 mg/dl (70-99)
[2023-11-08 06:19] LABS: Glucose - Point of Care 150 mg/dl (70-99)
--- NOTE | 2023-11-08 07:53 | PTCARENOTE ---
Pt admitted to unit from ED. Pt ambulated with nursing staff to bed. Pt speaks only Yarsanism. Language Line IPad used to interpret for admission. Pt reports not taking night time medication 'because I hurried to the hospital.' This RN reached out to
RISA Lopez. Orders placed. See MAR. Pt reports increased SOB with ambulation. BSC set up in room. Pt educated to use call brice when need to use BSC. Language Line IPad kept at bedside. Pt oriented to room with call brice in reach. Plan of
care ongoing.
[2023-11-08] MEDS: SODIUM BICARBONATE 1300 MG PO ×2 (09:01→15:20)
[2023-11-08] MEDS: DIOVAN 80 MG PO (09:01)
[2023-11-08] MEDS: ASPIR LOW (ENTERIC COATED) 81 MG PO (09:01)
[2023-11-08] MEDS: FARXIGA 10 MG PO (09:02)
[2023-11-08] MEDS: LASIX 80 MG IV ×2 (09:02→15:19)
[2023-11-08 09:22] LABS: Glucose - Point of Care 135 mg/dl (70-99)
[2023-11-08] MEDS: NOVOLOG FLEXPEN-MODERATE RESISTANCE SC ×2 (09:23→11:49)
[2023-11-08 09:32] LABS: Troponin I 0.024 ng/ml
[2023-11-08 09:40] LABS: Blood Urea Nitrogen 16 mg/dl (7-17); Calcium 9.4 mg/dl (8.4-10.2); Carbon Dioxide 19 mmol/L (22-30); Chloride 102 mmol/L (98-107); Estimated Creatinine Clearance 42 ml/min; Glucose 134 mg/dl (70-99); Potassium 4.6 mmol/L (3.5-5.1); Sodium 138 mmol/L (135-145); eGFR > 60.00
--- NOTE | 2023-11-08 11:17 | CM ---
Patient seen bedside, patient does not speak Chinese.
IA completed.
Patient s/p recent admission.
Admitted with Shortness of breath.
Patient is staying with daughter while visiting from [place].
Patient independent prior to admission.
Patient does not use assistive devices.
Patient does not drive.
Patient does not have a PCP here.
Patient would use the [facility] in [place] for medications if needed.
Patient does not have insurance, per [employer], [facility] (P).
Plan: home with family, watch for needs.
[2023-11-08 11:39] LABS: Glucose - Point of Care 124 mg/dl (70-99)
--- NOTE | 2023-11-08 13:23 | CON.CAR ---
Consultation
Consultation Request
Date/Time Consultation Requested: November 08, 2023 6:30 AM
Date/Time Consultation Performed: November 08, 2023 1 PM
Requesting Provider: Hospitalist
Performing Provider: Daniel Carver
Reason for Consultation: Heart failure
Medical History
-
Chief Complaint: Shortness of breath
History of Present Illness:
Patient does not speak Malian and is accompanied by her daughter and son-in-law who provide the majority of the interval history. She was recently discharged on October 21, however, she continues to have worsening shortness of breath. She also
endorses abdominal distention and upper abdominal pain. She also endorses weight gain. She also has dyspnea on exertion. It has gradually gotten worse up until yesterday when the decided to bring her to the emergency room. Of note she was
recently admitted for heart failure was found to have an EF of 40%. I discussed this diagnosis with daughter and son and they would like to finish the workup for her new cardiomyopathy in [place]. We discussed diuresis and they would like to her to
feel better so that she would be able to make her trip back to [facility]. Since being in the hospital she has been started on IV diuresis and is starting to feel better.
Past Medical History
Past Medical History: Other (Heart failure reduced ejection fraction of 40% history of prior HPV infection type 2 diabetes iron deficiency anemia)
Past Surgical History: None
Social History
Tobacco: Non-Smoker
Alcohol: None
Drug: None
Family History
Family History: Reviewed & Not Pertinent
Allergies / Home Medications
Allergy/AdvReac Type Severity Reaction Status Date / Time
No Known Allergies Allergy Verified 11/07/23 20:20
Medication Instructions Recorded Confirmed Type
dapagliflozin propanediol 10 mg 10 mg PO DAILY Diabetes 10/19/23 10/19/23 History
tablet
sitagliptin phosphate 50 1 tab PO BID Diabetes 10/19/23 10/19/23 History
mg-metformin 500 mg tablet
aspirin 81 mg tablet,delayed 81 mg PO DAILY #0 tabs 10/21/23 Rx
release
furosemide 20 mg tablet 20 mg PO DAILY #30 tabs 10/21/23 Rx
metoprolol succinate 25 mg 25 mg PO 2000 #30 tabs 10/21/23 Rx
tablet,extended release 24 hr
valsartan 80 mg tablet 80 mg PO DAILY #30 tabs 10/21/23 Rx
Review of Systems
-
All other systems: Negative unless noted
Physical Exam
Vital Signs
Temp Pulse Resp BP Pulse Ox
97.6 F 93 16 127/76 99
11/08/23 11:16 11/08/23 11:16 11/08/23 11:16 11/08/23 11:16 11/08/23 11:16
Lab Results
11/07/23 21:16
11/08/23 05:58
Troponin I 0.024 ng/ml 11/08/23 08:08
Qxw-X-Nhoblvkeyhc Pept 99267 pg/ml 11/07/23 21:16
Physical Exam
General: Well Developed and No Apparent Distress
HEENT: Normocephalic
Respiratory: Crackles and Non Labored Respirations
Cardiac: S1/S2 and Regular Rhythm
GI: Soft, Tender and Distended
Musculoskeletal: No Clubbing, No Cyanosis and No Edema
Skin: Warm and Dry
Neuro: Awake and Alert
Impression / Plan
-
68-year-old female with past medical history of new heart failure reduced ejection fraction of 40% recent hospitalization for exacerbation, type 2 diabetes, and iron deficiency anemia who is here today for acute on chronic heart failure
exacerbation.
Acute on chronic heart failure with reduced ejection, EF 40%, exacerbation
-Continue IV diuresis twice daily
-Dry weight appears to be approximately 120 pounds.
-Continue metoprolol
-Continue dapagliflozin
-Continue valsartan
-Per family wishes they would like to complete new cardiomyopathy workup in [facility], goal would be to get her to be euvolemic so that she is able to make the trip back
Type 2 diabetes
Continue dapagliflozin
Abdominal pain
-Suspect likely secondary to bowel edema, hopefully will improve with diuresis
Data Reviewed
-
EKG: Tracing Personally Visualized and interpreted
Medical Tests (Nuc Med, Echo etc): Report Reviewed by me
Labs: Labs Reviewed by me
[2023-11-08 14:29] LABS: Iron 26 ug/dl (37-170)
[2023-11-08 14:38] LABS: Percent Saturation 5 % (20-50); Total Iron Binding Capacity 498 ug/dl (265-497)
[2023-11-08 15:06] LABS: Ferritin 19.2 ng/ml (11.1-264.0)
[2023-11-08 15:21] LABS: Vitamin B12 859 pg/ml (239-931)
--- NOTE | 2023-11-08 15:21 | W.PN.HOSP.TC ---
Today's Communication/Plan
-
Continue diuresis
IV iron
Cardiology
Assessment / Plan
Assessment / Plan
68-year-old female was recently admitted to [facility] on 10/19/2023 and discharged on 10/21/2023. She was diagnosed with cardiomyopathy and heart failure with reduced ejection fraction, elevated LFTs and iron deficiency anemia. Echo showed
ejection fraction 40% with global hypokinesis and also stage II diastolic dysfunction, moderate MR. Cardiology recommended outpatient ischemic evaluation. Comes back with bloating/abdominal distention. Patient has not been very compliant with
fluid restriction at home. She is compliant with medicines.
Ultrasound of the abdomen-Nonspecific gallbladder wall thickening, stable from the previous abdominal ultrasound. No cholelithiasis or bile duct dilatation. Mild perihepatic ascites.
CVS: S1-S2 normal
Chest: Rales bilaterally.
Abdomen: Soft, NT / Bowel sounds present
Extremities: No edema, normal pulses
# Acute on chronic heart failure with reduced ejection fraction
Echo 10/20/2023-ejection fraction 40% stage II diastolic dysfunction, global hypokinesis, moderate mitral regurgitation
Weight up by 6 kg since discharge
proBNP 2100
Continue IV Lasix
Cardiology evaluation
Continue Beta-Blockers, SGLT2 Inhibitors, Valsartan
Intake output charting
Fluid restriction
Patient may need ischemic evaluation inpatient as she will not get this done as outpatient.
# Metabolic acidosis -Better
If continues may need to look at dapagliflozin
#Diabetes-hemoglobin A1c 7.0
Continue metformin
Continue SGLT2 inhibitors
Januvia
# Hyponatremia-likely hypervolemic-follow with Lasix
# Iron deficiency anemia- Iron studies indicated PAM
Anemia W/U as OP
IV Iron
# Microscopic hematuria-follow
# History of previous hepatitis B infection
# Nephrolithiasis
# DVT prophylaxis-Lovenox
# Full code
Discussed with daughter at bedside
Anticipated Discharge: 24 - 48 hours
Subjective/Interval History
-
Date of Service: November 08, 2023
Objective Data
-
Labs:
Laboratory Results
11/08/23
05:58
Sodium 138
Potassium 4.6
Chloride 102
Carbon Dioxide 19 L
BUN 16
Creatinine 0.9
Glucose 134 H
Calcium 9.4
Vital Signs:
Vital Signs
Temp Pulse Resp BP Pulse Ox
97.7 F 96 18 119/73 96
11/08/23 15:11 11/08/23 15:11 11/08/23 15:11 11/08/23 15:11 11/08/23 15:11
I&O
11/07/23 11/08/23 11/09/23
06:59 06:59 06:59
Intake Total 300 / 300
Output Total 350 / 350
Balance -50 / -50
[2023-11-08] MEDS: FERRLECIT 110 MG IV (16:28)
[2023-11-08 16:46] LABS: Glucose - Point of Care 208 mg/dl (70-99)
[2023-11-08] MEDS: LOVENOX 40 MG SC (17:36)
[2023-11-08] MEDS: NOVOLOG FLEXPEN-MODERATE RESISTANCE 3 UNITS SC (17:37)
[2023-11-08 21:38] LABS: Glucose - Point of Care 202 mg/dl (70-99)
[2023-11-09 03:00] VITALS: BP 111/70
[2023-11-09 04:44] LABS: Hematocrit 30.9 % (37.0-47.0); Hemoglobin 8.8 g/dL (12.0-16.0); Mean Corp Hgb Conc. 28.5 g/dL (33.0-37.0); Mean Corpuscular Hgb 18.8 pg (27.0-31.0); Mean Corpuscular Volume 66.2 fL (81.0-99.0); Mean Platelet Volume 10.4 fL (7.4-10.4); Platelet Count 292 10^3/uL (130-400); Red Blood Cell Count 4.67 10^6/uL (4.20-5.40); Red Cell Dist. Width 21.6 % (11.5-14.5); White Blood Cell Count 6.8 10^3/uL (4.8-10.8)
[2023-11-09 05:12] LABS: Lactic Acid 1.4 mmol/L (0.7-2.0)
[2023-11-09 05:31] LABS: Blood Urea Nitrogen 23 mg/dl (7-17); Calcium 9.2 mg/dl (8.4-10.2); Carbon Dioxide 27 mmol/L (22-30); Chloride 99 mmol/L (98-107); Estimated Creatinine Clearance 38 ml/min; Glucose 133 mg/dl (70-99); Potassium 3.3 mmol/L (3.5-5.1); Sodium 137 mmol/L (135-145); eGFR > 60.00
[2023-11-09 06:00] VITALS: BMI 24.3
[2023-11-09 07:15] VITALS: BP 119/71
[2023-11-09 08:10] LABS: Glucose - Point of Care 145 mg/dl (70-99)
[2023-11-09] MEDS: NOVOLOG FLEXPEN-MODERATE RESISTANCE SC (08:18)
[2023-11-09] MEDS: ASPIR LOW (ENTERIC COATED) 81 MG PO (08:42)
[2023-11-09] MEDS: LASIX 80 MG IV ×2 (08:42→16:33)
[2023-11-09] MEDS: DIOVAN 80 MG PO (08:42)
[2023-11-09] MEDS: FARXIGA 10 MG PO (08:42)
--- NOTE | 2023-11-09 08:58 | W.PN.CD ---
Today's Communication / Plan
-
- continue IV diuresis
Impression / Plan
-
68-year-old female with past medical history of new heart failure reduced ejection fraction of 40% recent hospitalization for exacerbation, type 2 diabetes, and iron deficiency anemia who is here today for acute on chronic heart failure
exacerbation. She has ongoing weakness and DEVRIES that I am not sure is 100% related to her CHF, when sitting she appears comfortable and not dyspneic, I suspect the weakness and DERVIES is related to deconditioning.
Acute on chronic heart failure with reduced ejection, EF 40%, exacerbation
-Continue IV diuresis twice daily
-Dry weight appears to be approximately 120 pounds.
-Continue metoprolol
-Continue dapagliflozin
-Continue valsartan
-Per family wishes they would like to complete new cardiomyopathy workup in [facility], goal would be to get her to be euvolemic so that she is able to make the trip back
Type 2 diabetes
Continue dapagliflozin
Abdominal pain
-Suspect likely secondary to bowel edema, hopefully will improve with diuresis
Physical Exam
Vital Signs/Labs
Vital Signs
Temp Pulse Resp BP Pulse Ox
97.6 F 74 16 111/70 100
11/09/23 03:00 11/09/23 03:00 11/09/23 03:00 11/09/23 03:00 11/09/23 03:00
11/08/23 11/09/23 11/10/23
06:59 06:59 06:59
Actual Weight 127 lb 9 oz 124 lb 3 oz
11/09/23 04:28
11/09/23 04:27
11/07/23
21:16
Uwm-I-Hchipwzmtom Pept [id number]
LAB Results
11/07/23 11/08/23
21:16 08:08
Troponin I 0.029 0.024
Physical Exam
Constitutional: No acute distress
EENT: Anicteric
Cardiovascular: Rhythm & rate is regular and Pedal edema is absent
Respiratory: Respiratory effort normal and Crackles Absent (mild at bases )
GI: Soft
Neuro/Psych: AO x 3
Data Reviewed
-
Date of Service: November 09, 2023
EKG: Tracing Personally Visualized and interpreted
Labs: Labs Reviewed by me
[2023-11-09 09:10] VITALS: BMI 24.3
--- NOTE | 2023-11-09 10:04 | CM ---
air battle manager spoke with patient's daughter and patient does not have travel insurance, [facility] to evaluate, per patient's daughter, Bri patient has been in the [place] for 7-8 months, but plans to return to [facility] in 1-2 weeks, [facility] to evaluate.
Plan; To return to daughter's home no needs.
--- NOTE | 2023-11-09 10:56 | W.PN.HOSP.TC ---
Today's Communication/Plan
-
PT/OT
Stop dapagliflozin
Assessment / Plan
Assessment / Plan
Gen-AAOx3, NAD
HEENT-NC, AT, anicteric, clear oral mm
Neck-supple
CV-reg, no M, +S1/S2
Lungs-clear B/L
Abd-soft, NT, ND
Ext-no edema
Musculoskeletal-no cyanosis, clubbing
Skin-warm and dry
Neuro-grossly non-focal
Psych-calm, cooperative
Acute on chronic heart failure with reduced ejection fraction -improving clinically. Shortness of breath and abdominal bloating are improving, weight coming down.
Echo 10/20/2023-ejection fraction 40% stage II diastolic dysfunction, global hypokinesis, moderate mitral regurgitation
Weight up by 6 kg since discharge
proBNP 12,100
Continue IV Lasix
Cardiology evaluation
Continue Beta-Blockers, SGLT2 Inhibitors, Valsartan
Intake output charting
Fluid restriction
Hypokalemia -check magnesium. Will replete.
Metabolic acidosis -suspect presentation with SGLT-2 inhibitor induced euglycemic DKA, bicarbonate was 13. Improved to 27 on oral bicarbonate therapy. Moving forward, we will discontinue dapagliflozin.
Tinnitus/hearing loss -will consult ENT.
DM2 without hyperglycemia -hemoglobin A1c 7.0%
Continue metformin
Januvia
Hyponatremia-likely hypervolemic. Sodium improved.
Chronic iron deficiency anemia- Iron studies indicated PAM
Anemia W/U as OP
IV Iron
Microscopic hematuria-follow
History of previous hepatitis B infection
Nephrolithiasis
DVT prophylaxis-Lovenox
Full code
PT/OT
Anticipated Discharge: > 48 hours
Subjective/Interval History
-
Date of Service: November 09, 2023
Patient seen and examined. States her shortness of breath and abdominal bloating are improving. Complaining of hearing loss and ringing in the right ear. Started 10 days ago. Video language line piano accompanist used to communicate with patient.
Objective Data
-
Labs:
Laboratory Results
11/09/23 11/09/23
04:27 04:28
WBC 6.8
Hgb 8.8 L
Hct 30.9 L
Plt Count 292
Sodium 137
Potassium 3.3 L D
Chloride 99
Carbon Dioxide 27
BUN 23 H
Creatinine 1.0
Glucose 133 H
Calcium 9.2
Vital Signs:
Vital Signs
Temp Pulse Resp BP Pulse Ox
99.0 F 74 18 119/71 98
11/09/23 07:15 11/09/23 08:42 11/09/23 07:15 11/09/23 08:42 11/09/23 07:15
I&O
11/08/23 11/09/23 11/10/23
06:59 06:59 06:59
Intake Total 300 / 300 1979 / 1979
Output Total 350 / 350 780 / 780
Balance -50 / -50 1200 / 1200
Review of Systems
-
Unable to obtain full review of systems at this time due to: Language Barrier
[2023-11-09 11:00] VITALS: BP 128/68
[2023-11-09 11:26] LABS: Magnesium 1.5 mg/dl (1.6-2.3)
[2023-11-09 11:35] LABS: Glucose - Point of Care 194 mg/dl (70-99)
[2023-11-09] MEDS: NOVOLOG FLEXPEN-MODERATE RESISTANCE 1 UNITS SC (11:36)
[2023-11-09] MEDS: KCL 40 MEQ PO (11:37)
[2023-11-09] MEDS: FERRLECIT 110 MG IV (13:47)
[2023-11-09] MEDS: MAGNESIUM SULFATE 50 IV (15:05)
[2023-11-09 15:30] VITALS: BP 120/71
--- NOTE | 2023-11-09 17:19 | CON.MD ---
Consultation - Medical
-
Patient seen and evaluated at the bedside.
Full consult dictated.
A/P- Hearing loss and tinnitus, left ear
-Left ear normal on exam.
-No obvious pathology visualized.
-Patient needs to be seen in the office to have a full audiogram performed.
-This was explained to the patient's daughter at the bedside.
-They will contact my office when she is discharged to be seen.
[2023-11-09 17:39] LABS: Glucose - Point of Care 241 mg/dl (70-99)
[2023-11-09] MEDS: LOVENOX 40 MG SC (17:40)
[2023-11-09] MEDS: NOVOLOG FLEXPEN-MODERATE RESISTANCE 3 UNITS SC (17:40)
[2023-11-09] MEDS: KCL 20 MEQ PO (19:31)
[2023-11-09] MEDS: TOPROL XL 25 MG PO (19:34)
[2023-11-09 19:52] VITALS: BP 115/66
[2023-11-09 23:32] VITALS: BP 120/69
[2023-11-09 23:51] LABS: Glucose - Point of Care 250 mg/dl (70-99)
[2023-11-10 03:18] VITALS: BP 141/75
[2023-11-10 04:47] VITALS: BMI 22.6
[2023-11-10 07:25] LABS: Glucose - Point of Care 156 mg/dl (70-99)
[2023-11-10 07:35] VITALS: BP 122/66
[2023-11-10] MEDS: DIOVAN 80 MG PO (07:52)
[2023-11-10] MEDS: KCL 20 MEQ PO (07:52)
[2023-11-10] MEDS: LASIX 80 MG IV (07:53)
[2023-11-10] MEDS: ASPIR LOW (ENTERIC COATED) 81 MG PO (07:53)
[2023-11-10] MEDS: NOVOLOG FLEXPEN-MODERATE RESISTANCE 1 UNITS SC (07:53)
[2023-11-10 08:15] VITALS: BP 129/106; O2SAT 100
[2023-11-10 08:17] LABS: Blood Urea Nitrogen 23 mg/dl (7-17); Calcium 9.4 mg/dl (8.4-10.2); Carbon Dioxide 31 mmol/L (22-30); Chloride 97 mmol/L (98-107); Estimated Creatinine Clearance 35 ml/min; Glucose 127 mg/dl (70-99); Potassium 4.4 mmol/L (3.5-5.1); Sodium 139 mmol/L (135-145); eGFR 54.39
[2023-11-10 08:45] VITALS: BP 129/106; PULSE 73; O2SAT 100
--- NOTE | 2023-11-10 08:55 | W.PN.CD ---
Today's Communication / Plan
-
-Patient does not appear to be grossly volume overloaded on examination; will decrease Lasix to 80 mg IV once daily (currently on twice daily dosing).
Impression / Plan
-
68-year-old female with past medical history of new heart failure reduced ejection fraction of 40% recent hospitalization for exacerbation, type 2 diabetes, and iron deficiency anemia who is here today for acute on chronic heart failure
exacerbation. She has ongoing weakness and DEVRIES that I am not sure is 100% related to her CHF, when sitting she appears comfortable and not dyspneic, I suspect the weakness and DEVRIES is related to deconditioning.
Acute on chronic heart failure with reduced ejection, EF 40%, exacerbation
-Patient does not appear to be grossly volume overloaded on examination; will decrease Lasix to 80 mg IV once daily (currently on twice daily dosing).
-Dry weight appears to be approximately 120 pounds.
-Continue metoprolol succinate.
-Dapagliflozin discontinued secondary to metabolic acidosis.
-Continue valsartan
-Per family wishes they would like to complete new cardiomyopathy workup in [place], goal would be to get her to be euvolemic so that she is able to make the trip back
Type 2 diabetes
Management as per primary team.
Abdominal pain
-Suspect likely secondary to bowel edema, hopefully will improve with diuresis.
Physical Exam
Vital Signs/Labs
Vital Signs
Temp Pulse Resp BP Pulse Ox
98 F 78 17 122/66 99
11/10/23 07:35 11/10/23 07:53 11/10/23 07:35 11/10/23 07:53 11/10/23 07:35
11/09/23 11/10/23 11/11/23
06:59 06:59 06:59
Actual Weight 56.331 kg 52.418 kg
11/09/23 04:28
11/10/23 06:14
Magnesium 1.5 mg/dl (1.6-2.3) L 11/09/23 04:27
11/07/23
21:16
Ypt-U-Oevllrxzgbk Pept [id number]
LAB Results
11/07/23 11/08/23
21:16 08:08
Troponin I 0.029 0.024
Physical Exam
Constitutional: No acute distress and Comfortable
EENT: Anicteric
Cardiovascular: Rhythm & rate is regular, Pedal edema is absent, Systolic murmur present (soft 2/) and S1S2 is normal
Respiratory: Respiratory effort normal and Lungs clear to auscul.
GI: Soft
Neuro/Psych: Alert and Oriented
Other: Skin (Warm, dry, intact)
Data Reviewed
-
Date of Service: November 10, 2023
EKG: Tracing Personally Visualized and interpreted (Sinus rhythm)
Echo: Tracing Personally Visualized and interpreted (EF 40%)
Labs: Labs Reviewed by me
--- NOTE | 2023-11-10 10:11 | W.PN.HOSP.TC ---
Today's Communication/Plan
-
discharge
Assessment / Plan
Assessment / Plan
Gen-AAOx3, NAD
HEENT-NC, AT, anicteric, clear oral mm
Neck-supple
CV-reg, no M, +S1/S2
Lungs-clear B/L
Abd-soft, NT, ND
Ext-no edema
Musculoskeletal-no cyanosis, clubbing
Skin-warm and dry
Neuro-grossly non-focal
Psych-calm, cooperative
Acute on chronic heart failure with reduced ejection fraction -improving clinically. Shortness of breath and abdominal bloating are improving, weight coming down.
Echo 10/20/2023-ejection fraction 40% stage II diastolic dysfunction, global hypokinesis, moderate mitral regurgitation
Weight up by 6 kg since discharge
proBNP 12,100
Continue IV Lasix
Cardiology evaluation
Continue Beta-Blockers, SGLT2 Inhibitors, Valsartan
Intake output charting
Fluid restriction. I explained to patient with the help of the language line supervisor border department that she needs to drink less than 1.5 L a day. She admits to drinking 10 to 12 glasses of water a day despite multiple explanations in the past regarding the
importance of fluid restriction in light of her congestive heart failure.
Hypokalemia -check magnesium. Will replete.
Metabolic acidosis -suspect presentation with SGLT-2 inhibitor induced euglycemic DKA, bicarbonate was 13. Improved to 27 on oral bicarbonate therapy. Moving forward, we will discontinue dapagliflozin.
Tinnitus/hearing loss -will consult ENT.
DM2 without hyperglycemia -hemoglobin A1c 7.0%
Continue metformin
Januvia
Hyponatremia-likely hypervolemic. Sodium improved.
Chronic iron deficiency anemia- Iron studies indicated PAM
Anemia W/U as OP
IV Iron
Microscopic hematuria-follow
History of previous hepatitis B infection
Nephrolithiasis
DVT prophylaxis-Lovenox
Full code
PT/OT -home PT.
Dispo -appears medically stable for discharge. Discussed with cardiology, Dr. Awan. Follow-up with PCP and cardiology as outpatient. Discussed importance of fluid restriction with patient's daughter on the phone. Discussed with nursing.
35 min spent in discharge process.
Anticipated Discharge: Today
Subjective/Interval History
-
Date of Service: November 10, 2023
Patient seen and examined. Shortness of breath resolved. Had transient shortness of breath last night. Complaining of muscular pain in the mid back.
Objective Data
-
Labs:
Laboratory Results
11/10/23
06:14
Sodium 139
Potassium 4.4 D
Chloride 97 L
Carbon Dioxide 31 H
BUN 23 H
Creatinine 1.1 H
Glucose 127 H
Calcium 9.4
Vital Signs:
Vital Signs
Temp Pulse Resp BP Pulse Ox
98 F 78 17 122/66 99
11/10/23 07:35 11/10/23 07:53 11/10/23 07:35 11/10/23 07:53 11/10/23 07:35
I&O
11/09/23 11/10/23 11/11/23
06:59 06:59 06:59
Intake Total 1979 / 1979 760 / 760
Output Total 780 / 780
Balance 1200 / 1200 760 / 760
Review of Systems
-
History Source: Patient
All other systems: Reviewed and negative
--- NOTE | 2023-11-10 10:23 | W.DS.TRANS ---
DC Summary - Automotive Internet Sales Manager
-
Discharge Instructions:
Sleep Apnea Risk Intermediate
Discharge Diagnosis/Procedures Congestive heart failure exacerbation
Diet Diabetic, Carb Controlled,2 Gram Sodium,Restrict
fluids to 48 oz
Activity As tolerated
Driving Restrictions As prior to admission
Bathing Restrictions None
Blood Work BMP in 1 week
Other Services VN
Instructions: *PCP/Other Tree Worker Heart Failure Instructions
Stand-Alone Forms:
Changes to Home Medications: Yes
Discharge Medications:
DC Medications w/original date entered in [facility]
sitagliptin phosphate 50 mg-metformin 500 mg tablet 1 tab PO BID Diabetes 10/19/23
aspirin 81 mg tablet,delayed release 81 mg PO DAILY #0 tabs 10/21/23
metoprolol succinate 25 mg tablet,extended release 24 hr 25 mg PO 2000 #30 tabs 10/21/23
valsartan 80 mg tablet 80 mg PO DAILY #30 tabs 10/21/23
furosemide 80 mg tablet 80 mg PO DAILY #30 tabs 11/10/23
potassium chloride 20 mEq tablet,extended release(part/cryst) 20 meq PO BID #28 tabs 11/10/23
Home Medication Changes
Stop dapagliflozin
Furosemide dose changed to 80 mg daily.
Pending Results: No
--- NOTE | 2023-11-10 10:59 | CM ---
Addendum entered by BIBIANA Watson 11/10/23 15:38:
[facility] with [facility]. gave primary care information. dgtr hopes patient will go back to [facility] in one week and will plan for dgtr to go see her in [place] and not come back to [place].
Addendum entered by BIBIANA Watson 11/10/23 11:08:
Dgtr to meet with CM today around 1400. Per attending need for home RN to offer further education on fluid and sodium restriction, medications to prevent heart failure reoccurence.
Original Note:
COnsult received from attending for home care but patient does not have a PCP. Patient could go to outpatient for any therapy needs. Cm to call dg to offer [facility] information.
[2023-11-10 11:34] LABS: Glucose - Point of Care 311 mg/dl (70-99)
[2023-11-10 11:41] VITALS: BP 119/76
[2023-11-10] MEDS: NOVOLOG FLEXPEN-MODERATE RESISTANCE 7 UNITS SC (11:46)
--- NOTE | 2023-11-20 12:01 | W.HF.CON ---
Heart Failure
- LV Function
Left ventricular function study result: LV Ejection fraction >35% - 40%
Ejection Fraction Percentage: 40
- ARNI
Patient already on ARNI: No
Heart Failure ARNI Contraindication: Acute Renal Failure, Patient Refusal
- ACEI/ARB
Patient already on ACEI/ARB: Yes
- Beta Baltazar
Patient already on Evidence Based Beta Baltazar: Yes
- Mineralocorticord Receptor Antagonist
Patient already on MRA: No
Heart Failure MRA Contraindication: Acute Renal Insufficiency
- SGLT-2 Inhibitor
Patient already on SGLT-2 Inhibitor: No
Heart Failure SGLT-2 Inhibitor Contraindication: Patient Refusal (metabolic acidosis)
- NYHA CHF Classification
NYHA CHF Classification Level: Class III - Symptoms w/ min exertion, interferes w/ nml daily activity
- ACC/AHA Stage
ACC/AHA Stage: Stage C: Symptomatic Heart Failure
== END 2023-11-10 14:54 | disposition home or self-care (01) | DRG 291 ==
LOC: 4 WEST ACU 23:56
PROVIDERS: Emergency Medicine; Hospitalist; ADMITTING PHYSICIAN Internal Medicine; ATTENDING PHYSICIAN Hospitalist; EMERGENCY PHYSICIAN Emergency Medicine; OTHER PHYSICIAN Internal Medicine Cardiovascular Disease; OTHER PHYSICIAN Otolaryngology
DX: I11.0 Hypertensive heart disease with heart failure (principal); E11.10 Type 2 diabetes mellitus with ketoacidosis without coma; I50.23 Acute on chronic systolic (congestive) heart failure; R18.8 Other ascites; E87.20 Acidosis, unspecified; E87.1 Hypo-osmolality and hyponatremia; D50.9 Iron deficiency anemia, unspecified; Z79.82 Long term (current) use of aspirin; E87.6 Hypokalemia; H91.90 Unspecified hearing loss, unspecified ear; H93.19 Tinnitus, unspecified ear
CPT/HCPCS: 71046; 76700; 80048; 82607; 82728; 82962; 83540; 83550; 83605; 83735; 83880; 84484; 85025; 85027; 93005; 96374; 97162; 97165; 99285; J2916